=== PATIENT | male | born 1975 | race Caucasian/White ===

== ENCOUNTER 2016-12-16 18:14 | Inpatient (IN) | payer OTHER ==
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
[2016-12-16] MEDS ORDERED: CLINDAMYCIN 600MG PREMIX IVPB 50 ML IVPB ONE (19:29)
[2016-12-16] MEDS ORDERED: CLINDAMYCIN PHOSPHATE 600 MG/4 ML VIAL ONE (19:31)
[2016-12-16] MEDS ORDERED: LIDOCAINE 2%/EPINEPHRINE 1:100000 (50 ML MD VIAL) INF ONE (19:48)
[2016-12-16] MEDS ORDERED: LIDO 2%/EPI 1:200000 PRESRVFRE (20 ML SDVIAL) ONE (19:53)
[2016-12-16 20:07] LABS: MCH 31.9 pg (25.7-33.7); MEAN CELL VOLUME 93.5 fl (80-96); MEAN PLT VOLUME 8.4 fl (7.5-11.1); PLATELET COUNT 264 K/MM3 (134-434); RDW 12.7 % (11.9-15.9); WHITE BLOOD COUNT 15.6 K/mm3 (4.0-10.8)
[2016-12-16 20:08] LABS: ALBUMIN 3.3 g/dl (3.5-5.0); ALK PHOS 62 U/L (32-92); ANION GAP 7 (8-16); BILIRUBIN,TOTAL 0.7 mg/dl (0.2-1.0); CALCIUM 9.1 mg/dl (8.4-10.2); CO2 29 mmol/L (22-28); CREATININE 1.3 mg/dl (0.6-1.3); GLUCOSE,RANDOM 133 mg/dl (74-106); SGOT/AST 20 U/L (10-42); SGPT/ALT 23 U/L (10-40); TOT PROT 6.4 g/dl (6.4-8.3)
[2016-12-16 21:39] LABS: PLATELET ESTIMATE ADEQUATE (NORMAL)
[2016-12-16 23:42] VITALS: BMI 29.2
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
[2016-12-17] MEDS: CLINDAMYCIN 600MG PREMIX IVPB 50 ML IVPB SCH ×2 (02:05→08:03)
[2016-12-17] MEDS: ACETAMINOPHEN 500 MG TABLET (FP) PO PRN ×3 (07:42→18:27)
--- NOTE | 2016-12-17 08:38 | PN ---
Physical Exam: SUBJECTIVE: Patient seen and examined, reports ongoing pain to the left lower extremity, reports tactile fevers. OBJECTIVE: patient is a 41 y/o male with no significant past medical history admitted from the emergency department to observation for left lower extremity cellulitis, s/p I&D of abscess 12/16/16 Vital Signs Period Temp Pulse Resp BP Sys/[place] Pulse Ox Last 24 Hr 98.0 F-99.0 F 81-93 18-20 113-123/59-68 95-95 GENERAL: The patient is awake, alert, and fully oriented, in no acute distress. HEAD: Normal with no signs of trauma. EYES: PERRL, extraocular movements intact, sclera anicteric, conjunctiva clear. No ptosis. ENT: Ears normal, nares patent, oropharynx clear without exudates, moist mucous membranes. NECK: Trachea midline, full range of motion, supple. LUNGS: Breath sounds equal, clear to auscultation bilaterally, no wheezes, no crackles, no accessory muscle use. HEART: Regular rate and rhythm, S1, S2 without murmur, rub or gallop. ABDOMEN: Soft, nontender, nondistended, normoactive bowel sounds, no guarding, no rebound, no hepatosplenomegaly, no masses. EXTREMITIES: 2+ pulses, warm, well-perfused, no edema. LEFT LOWER EXTREMITY: anterior distal extremity 3cm of induration, 2cm vertical incision packing in place, serrous drainage noted, no clear area of demarcation , distal lower extremity erythematous. NEUROLOGICAL: Cranial nerves II through XII grossly intact. Normal speech, gait not observed. PSYCH: Normal mood, normal affect. SKIN: Warm, dry, normal turgor, no rashes or lesions noted Active Medications Generic Name Dose Route Start Last Admin Trade Name Freq PRN Reason Stop Dose Admin Acetaminophen 1,000 mg 12/17/16 00:52 12/17/16 07:42 Tylenol - PO 1,000 mg Q6H PRN Administration FEVER OR PAIN Clindamycin Phosphate 50 mls @ 100 mls/hr 12/17/16 03:00 12/17/16 08:03 Cleocin 600 Mg Premix Ivpb - IVPB 100 mls/hr Q6H-IV RINKU Administration Radiology Reports LEG TIB/FIB-LEFT Infection. Rule out osteomyelitis X-ray of the left leg, 4 views Impression: Soft tissue swelling anterior to the mid tibial shaft likely the site of infection. No gross bone abnormality is seen. Correlate clinically for further evaluation. Reported By: Domenico Randall MD 12/16/16 0612 ASSESSMENT/PLAN: 41yM with no PMH presented to ED with infected wound left lower leg. Pt has been admitted for same. Cellulitis secondary to abscess - I&D completed by ED physician on 12/16, packing to be removed on 12/18 - d/c clindamycin, start unasyn and vancomycin, appreciate ID input - follow blood cultures. Wound culture not done at time of I&D DVT PPX - deferred as expected LOS < 48h FEN - tolerating po, no s/s dehydration - regular diet as tolerated Dispo: pt currently requires inpatient observation and treatment for management of his emergent condition. Visit type - Emergency Visit Emergency Visit: Yes ED Registration Date: 12/18/16 Care time: The patient presented to the Emergency Department on the above date and was hospitalized for further evaluation of their emergent condition. - New Patient This patient is new to me today: No - Critical Care Critical Care patient: No - Discharge Referral Referred to [facility] No
--- NOTE | 2016-12-17 10:19 | PN ---
Progress Note (short form) - Note Progress Note: ID Consult dictated S/P I&D L LE soft tissue abscess Cellulitis L LE Empiric vancomycin/ unasyn
[2016-12-17] MEDS ORDERED: AMPICILLIN NA/SULBACTAM NA 1.5 GM in SODIUM CHLORIDE 100 ML IVPB SCH (10:30)
[2016-12-17] MEDS: AMPICILLIN NA/SULBACTAM NA 1.5 GM VIAL IVPB SCH ×3 (10:55→21:38)
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
[2016-12-17] MEDS: VANCOMYCIN 1 GRAM (PRE-DOCKED) 250 ML IVPB SCH ×2 (11:39→22:38)
[2016-12-18] MEDS: AMPICILLIN NA/SULBACTAM NA 1.5 GM VIAL IVPB SCH ×4 (02:14→21:36)
[2016-12-18 07:51] LABS: EOSINOPHIL 3.6 % (0-4.5); MEAN PLT VOLUME 7.9 fl (7.5-11.1); PLATELET COUNT 262 K/MM3 (134-434); RDW 13.3 % (11.9-15.9); WHITE BLOOD COUNT 5.9 K/mm3 (4.0-10.8)
[2016-12-18 08:14] LABS: ANION GAP 6 (8-16); CALCIUM 8.4 mg/dl (8.4-10.2); CO2 28 mmol/L (22-28); CREATININE 1.1 mg/dl (0.6-1.3); GLUCOSE,RANDOM 93 mg/dl (74-106); MAGNESIUM 2.1 mg/dL (1.8-2.4); PHOSPHOROUS 2.9 mg/dl (2.5-4.6)
--- NOTE | 2016-12-18 10:13 | PN ---
Progress Note, Physician History of Present Illness: Awake, alert C/O L LE pain, relieved with tylenol No fever/ chills WBC improved- WNL - Current Medication List Current Medications: Active Medications Acetaminophen (Tylenol -) 1,000 mg PO Q6H PRN PRN Reason: FEVER OR PAIN Last Admin: 12/17/16 18:27 Dose: 1,000 mg Ampicillin Sodium/Sulbactam Sodium (Unasyn -) 1.5 gm IVPB Q6H-IV RINKU Last Admin: 12/18/16 09:25 Dose: 1.5 gm Vancomycin HCl (Vancomycin (Pre-Docked)) 250 mls @ 200 mls/hr IVPB BID RINKU Last Admin: 12/17/16 22:38 Dose: 200 mls/hr Oxycodone HCl (Roxicodone -) 5 mg PO Q6H PRN PRN Reason: PAIN - Objective Vital Signs: Vital Signs Temperature 98.8 F 12/18/16 05:47 Pulse Rate 80 12/18/16 05:47 Respiratory Rate 19 12/18/16 05:47 Blood Pressure 108/57 12/18/16 05:47 O2 Sat by Pulse Oximetry (%) 96 12/18/16 05:47 Constitutional: Yes: No Distress Eyes: Yes: Conjunctiva Clear Cardiovascular: Yes: Regular Rate and Rhythm, S1, S2 Respiratory: Yes: CTA Bilaterally Gastrointestinal: Yes: Normal Bowel Sounds, Soft, Other (helaed surgical scar). No: Tenderness Extremities: Yes: Other (+ incisional wound L pre-tibial area + surrounding swelling / erythema/ warmth) Labs: CBC, BMP 12/18/16 07:30 12/18/16 07:30 Assessment/Plan S/P I&D Soft tissue abscess L LE Cellulitis L LE Possible early osteomyelitis, tibia Check ESR CRP Vanco level Continue empiric vancomycin/ unasyn
[2016-12-18] MEDS ORDERED: LIDOCAINE 1%/EPI 1:100000 (20 ML MULTI DOSE VIAL) IJ ONE (11:30)
[2016-12-18] MEDS ORDERED: LIDOCAINE 1%-EPI 1:100,000 30 ML MDV IJ ONE (12:15)
[2016-12-18] MEDS: VANCOMYCIN 1 GRAM (PRE-DOCKED) 250 ML IVPB SCH ×2 (12:17→22:08)
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
--- NOTE | 2016-12-18 12:35 | PROC ---
Incision and Drainage Indication/Location: Left lower extremity, anterior aspect below the knee Risks and Benefits Explained: Yes Consent on Chart: Yes Betadine cleansed: Yes Anesthesia: 1% Lidocaine w/ Epi Blade Size: 15 Drainage: Copious pus and cystic appearing content Iodinated Packin in - Remarks Remarks: Extension to the bone Cavity- approximately 5cm x 4cm x 2cm Excisional debridement of necrotic debris performed as well
--- NOTE | 2016-12-18 13:33 | PN ---
Physical Exam: SUBJECTIVE: Patient seen and examined, reports pain to the left lower extremity has improved, denies any tactile fever. OBJECTIVE: patient is a 41 y/o male with no significant past medical history admitted from the emergency department to observation for left lower extremity cellulitis, s/p I&D of abscess 12/16/16 Vital Signs Period Temp Pulse Resp BP Sys/[place] Pulse Ox Last 24 Hr 98.2 F-98.8 F 75-80 18-19 107-134/57-75 95-97 GENERAL: The patient is awake, alert, and fully oriented, in no acute distress. HEAD: Normal with no signs of trauma. EYES: PERRL, extraocular movements intact, sclera anicteric, conjunctiva clear. No ptosis. ENT: Ears normal, nares patent, oropharynx clear without exudates, moist mucous membranes. NECK: Trachea midline, full range of motion, supple. LUNGS: Breath sounds equal, clear to auscultation bilaterally, no wheezes, no crackles, no accessory muscle use. HEART: Regular rate and rhythm, S1, S2 without murmur, rub or gallop. ABDOMEN: Soft, nontender, nondistended, normoactive bowel sounds, no guarding, no rebound, no hepatosplenomegaly, no masses. EXTREMITIES: 2+ pulses, warm, well-perfused, no edema. LEFT LOWER EXTREMITY: anterior distal extremity 3cm of induration, 2cm vertical incision packing removed purulent drainage noted with tracking, noted, no clear area of demarcation, distal lower extremity erythematous. NEUROLOGICAL: Cranial nerves II through XII grossly intact. Normal speech, gait not observed. PSYCH: Normal mood, normal affect. SKIN: Warm, dry, normal turgor, no rashes or lesions noted Laboratory Results - last 24 hr 12/18/16 12/18/16 12/18/16 07:30 07:30 07:30 WBC 5.9 D RBC 4.43 Hgb 13.8 Hct 41.7 MCV 94.0 MCH 31.0 MCHC 33.0 RDW 13.3 Plt Count 262 MPV 7.9 Neutrophils % 70.0 Lymphocytes % 14.4 D Monocytes % 11.0 H D Eosinophils % 3.6 Basophils % 1.0 Sodium 137 Potassium 4.2 Chloride 103 Carbon Dioxide 28 Anion Gap 6 L BUN 6 L D Creatinine 1.1 Random Glucose 93 D Calcium 8.4 Phosphorus 2.9 Magnesium 2.1 Vancomycin Pre-Dose 5.696 Active Medications Generic Name Dose Route Start Last Admin Trade Name Freq PRN Reason Stop Dose Admin Acetaminophen 1,000 mg 12/17/16 00:52 12/17/16 18:27 Tylenol - PO 1,000 mg Q6H PRN Administration FEVER OR PAIN Ampicillin Sodium/Sulbactam Sodium 1.5 gm 12/17/16 10:45 12/18/16 09:25 Unasyn - IVPB 1.5 gm Q6H-IV RINKU Administration Hydromorphone HCl 2 mg 12/18/16 12:24 Dilaudid Injection - IVPB Q6H PRN PAIN Vancomycin HCl 250 mls @ 200 mls/hr 12/17/16 10:30 12/18/16 12:17 Vancomycin (Pre-Docked) IVPB 200 mls/hr BID RINKU Administration Oxycodone HCl 5 mg 12/17/16 12:15 Roxicodone - PO Q6H PRN PAIN Microbiology 12/16/16 20:00 Blood - Peripheral Venous Blood Culture - Preliminary NO GROWTH OBTAINED AFTER 24 HOURS, INCUBATION TO CONTINUE FOR 4 DAYS. 12/16/16 19:45 Blood - Peripheral Venous Blood Culture - Preliminary NO GROWTH OBTAINED AFTER 24 HOURS, INCUBATION TO CONTINUE FOR 4 DAYS. Radiology Reports LEG TIB/FIB-LEFT Infection. Rule out osteomyelitis X-ray of the left leg, 4 views Impression: Soft tissue swelling anterior to the mid tibial shaft likely the site of infection. No gross bone abnormality is seen. Correlate clinically for further evaluation. Reported By: Domenico Randall MD 12/16/[address] scan of the left lower extremity: impression: skin defect with air bubbles tracking into the soft tissues at the anterior aspect of the mid tibia/fibula suspicious for a fistula with abscess. minimal periosteal changes of the underlying anterior tibial raises concern for osteomyelitis. reports by: Dr Bernardo 12/17/16 ASSESSMENT/PLAN: Cellulitis secondary to abscess - ct scan reviewed high clinical concern for necrotizing fascitis, case discussed with Dr Henderson, surgery, ID performed at bedside by Dr Henderson, idoform packing placed - continue daily Idoform packing changes - continue unasyn and vancomycin, vanc trough wnl - blood cultures NTD DVT PPX - lovenox - zantac - oob FEN - tolerating po, no s/s dehydration - regular diet as tolerated Dispo: pt requires inpatient admission for management of his emergent condition. Visit type - Emergency Visit Emergency Visit: Yes ED Registration Date: 12/18/16 Care time: The patient presented to the Emergency Department on the above date and was hospitalized for further evaluation of their emergent condition. - New Patient This patient is new to me today: No - Critical Care Critical Care patient: No - Discharge Referral Referred to [facility] Med P.C.: No
[2016-12-18] MEDS: oxyCODONE HCL 5 MG TABLET PO PRN (14:06)
[2016-12-18] MEDS: HYDROmorphone HCL CARPU-JECT 2 MG/1 ML DISP.SYRIN IVPB PRN (15:40)
[2016-12-19] MEDS: AMPICILLIN NA/SULBACTAM NA 1.5 GM VIAL IVPB SCH ×4 (03:45→20:30)
[2016-12-19] MEDS: oxyCODONE HCL 5 MG TABLET PO PRN (08:00)
[2016-12-19] MEDS: ACETAMINOPHEN 500 MG TABLET (FP) PO PRN (08:02)
[2016-12-19 08:59] LABS: ANION GAP 8 (8-16); CALCIUM 8.6 mg/dl (8.4-10.2); CO2 26 mmol/L (22-28); CREATININE 0.9 mg/dl (0.6-1.3); GLUCOSE,RANDOM 78 mg/dl (74-106); MAGNESIUM 2.3 mg/dL (1.8-2.4); PHOSPHOROUS 4.1 mg/dl (2.5-4.6)
[2016-12-19 09:04] LABS: BASOPHIL 0.7 % (0-2.0); MCH 30.9 pg (25.7-33.7); MCHC 32.6 g/dl (32.0-35.9); MEAN CELL VOLUME 94.7 fl (80-96); MEAN PLT VOLUME 8.4 fl (7.5-11.1); NEUTROPHILS 64.1 % (42.8-82.8); PLATELET COUNT 255 K/MM3 (134-434); RDW 13.2 % (11.9-15.9); WHITE BLOOD COUNT 5.7 K/mm3 (4.0-10.8)
--- NOTE | 2016-12-19 09:19 | PN ---
Progress Note, Physician History of Present Illness: S/P I&D L LE soft tissue abscess Findings discussed with Dr Henderson Infection extends down to bone No c/o pain at present No fever/ chills Tolerating antibiotics - Current Medication List Current Medications: Active Medications Acetaminophen (Tylenol -) 1,000 mg PO Q6H PRN PRN Reason: FEVER OR PAIN Last Admin: 12/19/16 08:02 Dose: 1,000 mg Ampicillin Sodium/Sulbactam Sodium (Unasyn -) 1.5 gm IVPB Q6H-IV RINKU Last Admin: 12/19/16 03:45 Dose: 1.5 gm Enoxaparin Sodium (Lovenox -) 40 mg SQ DAILY RINKU Hydromorphone HCl (Dilaudid Injection -) 2 mg IVPB Q6H PRN PRN Reason: PAIN Last Admin: 12/18/16 15:40 Dose: 2 mg Vancomycin HCl (Vancomycin (Pre-Docked)) 250 mls @ 200 mls/hr IVPB BID RINKU Last Admin: 12/18/16 22:08 Dose: 200 mls/hr Oxycodone HCl (Roxicodone -) 5 mg PO Q6H PRN PRN Reason: PAIN Last Admin: 12/19/16 08:00 Dose: 5 mg - Objective Vital Signs: Vital Signs Temperature 97.7 F 12/19/16 05:45 Pulse Rate 65 12/19/16 05:45 Respiratory Rate 18 12/19/16 08:55 Blood Pressure 126/74 12/19/16 05:45 O2 Sat by Pulse Oximetry (%) 0 L 12/19/16 08:55 Constitutional: Yes: No Distress Eyes: Yes: Conjunctiva Clear Cardiovascular: Yes: Regular Rate and Rhythm, S1, S2 Respiratory: Yes: CTA Bilaterally Gastrointestinal: Yes: Normal Bowel Sounds, Soft. No: Tenderness Extremities: Yes: Other (incisional wound L pre-tibial area packed + surrounding erythema/ warmth /induration) Labs: CBC, BMP 12/19/16 07:00 Assessment/Plan S/P I&D Soft tissue abscess L LE Cellulitis L LE Probable early osteomyelitis, tibia Await wound c/s Continue empiric vancomycin/ unasyn Will need PICC, outpatient antibiotics
[2016-12-19] MEDS: ENOXAPARIN NA (PORCINE) 40 MG/0.4 ML DISP.SYRIN SQ SCH (09:22)
[2016-12-19] MEDS: VANCOMYCIN 1 GRAM (PRE-DOCKED) 250 ML IVPB SCH ×2 (09:23→21:17)
[2016-12-19] MEDS: HYDROmorphone HCL CARPU-JECT 2 MG/1 ML DISP.SYRIN IVPB PRN (09:48)
[2016-12-19] MEDS ORDERED: PICC LINE 8 ML FLUSH PROTOCOL IVPUSH PRN (12:03)
--- NOTE | 2016-12-19 12:04 | PN ---
Physical Exam: SUBJECTIVE: Patient seen and examined, reports feeling well denies any tactile fever, reports intermittent pain to the left lower extremity, denies any paresthesia to the left lower extremity. OBJECTIVE: patient is a 41 y/o male with no significant past medical history admitted from the emergency department to observation for left lower extremity cellulitis, s/p I&D of abscess 12/16/16 and I&D by Dr Henderson 12/18/16 Vital Signs Period Temp Pulse Resp BP Sys/[place] Pulse Ox Last 24 Hr 97.7 F-99.1 F 64-78 18-20 125-132/70-74 0-97 GENERAL: The patient is awake, alert, and fully oriented, in no acute distress. HEAD: Normal with no signs of trauma. EYES: PERRL, extraocular movements intact, sclera anicteric, conjunctiva clear. No ptosis. ENT: Ears normal, nares patent, oropharynx clear without exudates, moist mucous membranes. NECK: Trachea midline, full range of motion, supple. LUNGS: Breath sounds equal, clear to auscultation bilaterally, no wheezes, no crackles, no accessory muscle use. HEART: Regular rate and rhythm, S1, S2 without murmur, rub or gallop. ABDOMEN: Soft, nontender, nondistended, normoactive bowel sounds, no guarding, no rebound, no hepatosplenomegaly, no masses. EXTREMITIES: 2+ pulses, warm, well-perfused, no edema. LEFT LOWER EXTREMITY: distal extremity 4cm of induration, horizontal 3 x 1cm incision and 5cm of surrounding erythema NEUROLOGICAL: Cranial nerves II through XII grossly intact. Normal speech, gait not observed. PSYCH: Normal mood, normal affect. SKIN: Warm, dry, normal turgor, no rashes or lesions noted Laboratory Results - last 24 hr 12/19/16 12/19/16 07:00 07:00 WBC 5.7 RBC 4.53 Hgb 14.0 Hct 42.9 MCV 94.7 MCH 30.9 MCHC 32.6 RDW 13.2 Plt Count 255 MPV 8.4 Neutrophils % 64.1 Lymphocytes % 18.6 D Monocytes % 13.6 H Eosinophils % 3.0 Basophils % 0.7 Sodium 138 Potassium 3.9 Chloride 104 Carbon Dioxide 26 Anion Gap 8 BUN 8 D Creatinine 0.9 Random Glucose 78 Calcium 8.6 Phosphorus 4.1 D Magnesium 2.3 Active Medications Generic Name Dose Route Start Last Admin Trade Name Freq PRN Reason Stop Dose Admin Acetaminophen 1,000 mg 12/17/16 00:52 12/19/16 08:02 Tylenol - PO 1,000 mg Q6H PRN Administration FEVER OR PAIN Ampicillin Sodium/Sulbactam Sodium 1.5 gm 12/17/16 10:45 12/19/16 09:23 Unasyn - IVPB 1.5 gm Q6H-IV RINKU Administration Enoxaparin Sodium 40 mg 12/19/16 10:00 12/19/16 09:22 Lovenox - SQ 40 mg DAILY RINKU Administration Hydromorphone HCl 2 mg 12/18/16 12:24 12/19/16 09:48 Dilaudid Injection - IVPB 2 mg Q6H PRN Administration PAIN Hydromorphone HCl 2 mg 12/19/16 12:30 Dilaudid Injection - IVPB 12/19/16 12:31 ONCE ONE Vancomycin HCl 250 mls @ 200 mls/hr 12/17/16 10:30 12/19/16 09:23 Vancomycin (Pre-Docked) IVPB 200 mls/hr BID RINKU Administration Oxycodone HCl 5 mg 12/17/16 12:15 12/19/16 08:00 Roxicodone - PO 5 mg Q6H PRN Administration PAIN Microbiology 12/16/16 20:00 Blood - Peripheral Venous Blood Culture - Preliminary NO GROWTH OBTAINED AFTER 48 HOURS, INCUBATION TO CONTINUE FOR 3 DAYS. 12/16/16 19:45 Blood - Peripheral Venous Blood Culture - Preliminary NO GROWTH OBTAINED AFTER 48 HOURS, INCUBATION TO CONTINUE FOR 3 DAYS. Radiology Reports LEG TIB/FIB-LEFT Infection. Rule out osteomyelitis X-ray of the left leg, 4 views Impression: Soft tissue swelling anterior to the mid tibial shaft likely the site of infection. No gross bone abnormality is seen. Correlate clinically for further evaluation. Reported By: Domenico Randall MD 12/16/[address] scan of the left lower extremity: impression: skin defect with air bubbles tracking into the soft tissues at the anterior aspect of the mid tibia/fibula suspicious for a fistula with abscess. minimal periosteal changes of the underlying anterior tibial raises concern for osteomyelitis. reports by: Dr Bernardo 12/17/16 ASSESSMENT/PLAN: Cellulitis secondary to abscess - idoform packing changed by me, scant purulent drainage noted, wound irrigated with 500ml of NS, 1 inch idoform packing placed - continue daily Idoform packing changes - continue unasyn and vancomycin, vanc trough wnl - blood cultures NTD pending wound culture - pt will require picc line for senior care abx, picc to be placed 12/22/16 - ID and surgery consulted and following DVT PPX - lovenox - zantac - oob FEN - tolerating po, no s/s dehydration - regular diet as tolerated Dispo: pt requires inpatient admission for management of his emergent condition. Visit type - Emergency Visit Emergency Visit: Yes ED Registration Date: 12/18/16 Care time: The patient presented to the Emergency Department on the above date and was hospitalized for further evaluation of their emergent condition. - New Patient This patient is new to me today: No - Critical Care Critical Care patient: No - Discharge Referral Referred to [facility] Med P.C.: No
[2016-12-19] MEDS ORDERED: HYDROmorphone HCL CARPU-JECT 2 MG/1 ML DISP.SYRIN IVPB ONE (12:30)
--- NOTE | 2016-12-19 19:48 | PN ---
Progress Note (short form) - Note Progress Note: No events reported Packing changed by primary team Vital Signs Period Temp Pulse Resp BP Sys/[place] Pulse Ox Last 24 Hr 97.7 F-98.0 F 59-65 18-20 120-126/70-74 0-97 CBC, BMP 12/19/16 07:00 12/19/16 07:00 Continue antibiotics per ID Daily dressing changes Leg elevation
[2016-12-20] MEDS: AMPICILLIN NA/SULBACTAM NA 1.5 GM VIAL IVPB SCH ×4 (04:05→20:23)
[2016-12-20 07:40] LABS: BASOPHIL 1.7 % (0-2.0); EOSINOPHIL 3.2 % (0-4.5); MCH 31.2 pg (25.7-33.7); MCHC 33.2 g/dl (32.0-35.9); MEAN CELL VOLUME 93.9 fl (80-96); MEAN PLT VOLUME 7.7 fl (7.5-11.1); NEUTROPHILS 67.2 % (42.8-82.8); PLATELET COUNT 277 K/MM3 (134-434); RDW 12.9 % (11.9-15.9); WHITE BLOOD COUNT 6.2 K/mm3 (4.0-10.8)
[2016-12-20 08:07] LABS: ANION GAP 6 (8-16); CALCIUM 8.4 mg/dl (8.4-10.2); CO2 28 mmol/L (22-28); GLUCOSE,RANDOM 95 mg/dl (74-106); MAGNESIUM 2.2 mg/dL (1.8-2.4)
--- NOTE | 2016-12-20 09:13 | PN ---
Progress Note, Physician History of Present Illness: Reports less leg pain No fever/ chills Tolerating antibiotics - Current Medication List Current Medications: Active Medications Acetaminophen (Tylenol -) 1,000 mg PO Q6H PRN PRN Reason: FEVER OR PAIN Last Admin: 12/19/16 08:02 Dose: 1,000 mg Ampicillin Sodium/Sulbactam Sodium (Unasyn -) 1.5 gm IVPB Q6H-IV RINKU Last Admin: 12/20/16 04:05 Dose: 1.5 gm Enoxaparin Sodium (Lovenox -) 40 mg SQ DAILY [facility] Last Admin: 12/19/16 09:22 Dose: 40 mg Hydromorphone HCl (Dilaudid Injection -) 2 mg IVPB Q6H PRN PRN Reason: PAIN Last Admin: 12/19/16 09:48 Dose: 2 mg IV Flush (Picc Line Flush) 8 ml IVPUSH PRN PRN PRN Reason: Protocol Vancomycin HCl 1,250 mg/ (Dextrose) 250 mls @ 166.667 mls/hr IVPB BID RINKU Oxycodone HCl (Roxicodone -) 5 mg PO Q6H PRN PRN Reason: PAIN Last Admin: 12/19/16 08:00 Dose: 5 mg - Objective Vital Signs: Vital Signs Temperature 98.0 F 12/20/16 06:00 Pulse Rate 67 12/20/16 06:00 Respiratory Rate 18 12/20/16 09:00 Blood Pressure 127/74 12/20/16 06:00 O2 Sat by Pulse Oximetry (%) 97 12/20/16 09:00 Constitutional: Yes: No Distress Eyes: Yes: Conjunctiva Clear Cardiovascular: Yes: Regular Rate and Rhythm, S1, S2 Respiratory: Yes: CTA Bilaterally Gastrointestinal: Yes: Normal Bowel Sounds, Soft. No: Tenderness Extremities: Yes: Other (Incisional wound packed decreased erythema/ warmth/ induration L LE) Labs: CBC, BMP 12/20/16 07:20 12/20/16 07:20 Assessment/Plan S/P I&D Soft tissue abscess L LE Cellulitis L LE Probable early osteomyelitis, tibia Await wound c/s Continue empiric vancomycin/ unasyn Will need PICC, outpatient antibiotics
[2016-12-20] MEDS: ENOXAPARIN NA (PORCINE) 40 MG/0.4 ML DISP.SYRIN SQ SCH (09:45)
[2016-12-20] MEDS: VANCOMYCIN 1,250 MG in DEXTROSE 5%-WATER - 250 ML IVPB SCH ×2 (09:45→21:32)
--- NOTE | 2016-12-20 09:57 | PN ---
Physical Exam: SUBJECTIVE: Patient seen and examined at bedside. OBJECTIVE: Vital Signs Period Temp Pulse Resp BP Sys/[place] Pulse Ox Last 24 Hr 97.7 F-98.0 F 59-94 16-18 115-127/59-74 96-97 GENERAL: The patient is awake, alert, and fully oriented, in no acute distress. HEAD: Normal with no signs of trauma. LUNGS: Breath sounds equal, clear to auscultation bilaterally, no wheezes, no crackles, no accessory muscle use. HEART: Regular rate and rhythm, S1, S2 without murmur, rub or gallop. ABDOMEN: Soft, nontender, nondistended, normoactive bowel sounds, no guarding, no rebound, no hepatosplenomegaly, no masses. EXTREMITIES: 2+ pulses, warm, well-perfused, no edema. I&D site with iodoform packing. Minimal redness to site. No drainage. NEUROLOGICAL: Cranial nerves II through XII grossly intact. Normal speech, gait not observed. PSYCH: Normal mood, normal affect. SKIN: Warm, dry, normal turgor, no rashes or lesions noted Laboratory Results - last 24 hr 12/19/16 12/20/16 12/20/16 09:00 07:20 07:20 WBC 6.2 RBC 4.62 Hgb 14.4 Hct 43.3 MCV 93.9 MCH 31.2 MCHC 33.2 RDW 12.9 Plt Count 277 MPV 7.7 Neutrophils % 67.2 Lymphocytes % 20.1 Monocytes % 7.8 Eosinophils % 3.2 Basophils % 1.7 Sodium 140 Potassium 4.2 Chloride 106 Carbon Dioxide 28 Anion Gap 6 L BUN 8 Creatinine 1.0 Random Glucose 95 D Calcium 8.4 Phosphorus 4.0 Magnesium 2.2 Vancomycin Pre-Dose 4.798 L D Active Medications Generic Name Dose Route Start Last Admin Trade Name Freq PRN Reason Stop Dose Admin Acetaminophen 1,000 mg 12/17/16 00:52 12/19/16 08:02 Tylenol - PO 1,000 mg Q6H PRN Administration FEVER OR PAIN Ampicillin Sodium/Sulbactam Sodium 1.5 gm 12/17/16 10:45 12/20/16 09:44 Unasyn - IVPB 1.5 gm Q6H-IV RINKU Administration Enoxaparin Sodium 40 mg 12/19/16 10:00 12/20/16 09:45 Lovenox - SQ 40 mg DAILY RINKU Administration Hydromorphone HCl 2 mg 12/18/16 12:24 12/19/16 09:48 Dilaudid Injection - IVPB 2 mg Q6H PRN Administration PAIN IV Flush 8 ml 12/19/16 12:03 Picc Line Flush IVPUSH PRN PRN Protocol Vancomycin HCl 1,250 mg/ 250 mls @ 166.667 mls/hr 12/20/16 10:00 12/20/16 09:45 Dextrose IVPB 166.667 mls/hr BID RINKU Administration Oxycodone HCl 5 mg 12/17/16 12:15 12/19/16 08:00 Roxicodone - PO 5 mg Q6H PRN Administration PAIN ASSESSMENT/PLAN: A: 41yo man with LLE cellulitis with abscess s/p I&D on 12/18 1. Cellulitis secondary to abscess - iodoform packing changed by me, no drainage noted, wound irrigated with 500ml of NS, 1 inch iodoform packing placed - continue daily Iodoform packing changes - continue unasyn and vancomycin, vanc trough wnl - blood cultures NTD - wound cx- MSSA - picc for residential abx, to be placed 12/22/16 - ID and surgery following 2. FEN - tolerating po, no s/s dehydration - regular diet as tolerated 3. DVT PPX - lovenox - zantac - oob Dispo: pt requires inpatient care for his acute medical condition. Visit type - Emergency Visit Emergency Visit: Yes ED Registration Date: 12/18/16 Care time: The patient presented to the Emergency Department on the above date and was hospitalized for further evaluation of their emergent condition. - New Patient This patient is new to me today: Yes Date on this admission: 12/21/16 - Critical Care Critical Care patient: No
[2016-12-20] MEDS: HYDROmorphone HCL CARPU-JECT 2 MG/1 ML DISP.SYRIN IVPB PRN (12:52)
[2016-12-20] MEDS: ACETAMINOPHEN 500 MG TABLET (FP) PO PRN (19:52)
[2016-12-20] MEDS: oxyCODONE HCL 5 MG TABLET PO PRN (19:52)
[2016-12-21] MEDS: AMPICILLIN NA/SULBACTAM NA 1.5 GM VIAL IVPB SCH ×4 (03:12→21:43)
[2016-12-21 07:54] LABS: BASOPHIL 0.3 % (0-2.0); EOSINOPHIL 3.6 % (0-4.5); MEAN PLT VOLUME 8.1 fl (7.5-11.1); WHITE BLOOD COUNT 5.6 K/mm3 (4.0-10.8)
[2016-12-21 08:01] LABS: MCH 31.3 pg (25.7-33.7); MCHC 33.6 g/dl (32.0-35.9); MEAN CELL VOLUME 93.1 fl (80-96); NEUTROPHILS 67.1 % (42.8-82.8); PLATELET COUNT 283 K/MM3 (134-434); RDW 12.6 % (11.9-15.9)
[2016-12-21 08:12] LABS: ANION GAP 7 (8-16); CALCIUM 8.3 mg/dl (8.4-10.2); CO2 25 mmol/L (22-28); CREATININE 0.9 mg/dl (0.6-1.3); GLUCOSE,RANDOM 117 mg/dl (74-106)
[2016-12-21] MEDS: ENOXAPARIN NA (PORCINE) 40 MG/0.4 ML DISP.SYRIN SQ SCH (09:39)
[2016-12-21] MEDS: VANCOMYCIN 1,250 MG in DEXTROSE 5%-WATER - 250 ML IVPB SCH ×2 (09:48→23:19)
--- NOTE | 2016-12-21 09:58 | PN ---
Physical Exam: SUBJECTIVE: Patient seen and examined at bedside. OBJECTIVE: Vital Signs Period Temp Pulse Resp BP Sys/[place] Pulse Ox Last 24 Hr 97.9 F-98.7 F 65-85 18-20 113-144/63-80 95-98 GENERAL: The patient is awake, alert, and fully oriented, in no acute distress. HEAD: Normal with no signs of trauma. LUNGS: Breath sounds equal, clear to auscultation bilaterally, no wheezes, no crackles, no accessory muscle use. HEART: Regular rate and rhythm, S1, S2 without murmur, rub or gallop. ABDOMEN: Soft, nontender, nondistended, normoactive bowel sounds, no guarding, no rebound, no hepatosplenomegaly, no masses. EXTREMITIES: 2+ pulses, warm, well-perfused, no edema. I&D site with iodoform packing. Minimal redness to site. No drainage. NEUROLOGICAL: Cranial nerves II through XII grossly intact. Normal speech, gait not observed. PSYCH: Normal mood, normal affect. SKIN: Warm, dry, normal turgor, no rashes or lesions noted Laboratory Results - last 24 hr 12/21/16 12/21/16 06:00 06:00 WBC 5.6 RBC 4.71 Hgb 14.7 Hct 43.8 MCV 93.1 MCH 31.3 MCHC 33.6 RDW 12.6 Plt Count 283 MPV 8.1 Neutrophils % 67.1 Lymphocytes % 20.9 Monocytes % 8.1 Eosinophils % 3.6 Basophils % 0.3 Sodium 138 Potassium 3.7 Chloride 106 Carbon Dioxide 25 Anion Gap 7 L BUN 8 Creatinine 0.9 Random Glucose 117 H D Calcium 8.3 L Active Medications Generic Name Dose Route Start Last Admin Trade Name Freq PRN Reason Stop Dose Admin Acetaminophen 1,000 mg 12/17/16 00:52 12/20/16 19:52 Tylenol - PO 1,000 mg Q6H PRN Administration FEVER OR PAIN Ampicillin Sodium/Sulbactam Sodium 1.5 gm 12/17/16 10:45 12/21/16 09:39 Unasyn - IVPB 1.5 gm Q6H-IV RINKU Administration Enoxaparin Sodium 40 mg 12/19/16 10:00 12/21/16 09:39 Lovenox - SQ 40 mg DAILY RINKU Administration Hydromorphone HCl 2 mg 12/18/16 12:24 12/20/16 12:52 Dilaudid Injection - IVPB 2 mg Q6H PRN Administration PAIN IV Flush 8 ml 12/19/16 12:03 Picc Line Flush IVPUSH PRN PRN Protocol Vancomycin HCl 1,250 mg/ 250 mls @ 166.667 mls/hr 12/20/16 10:00 12/21/16 09:48 Dextrose IVPB 166.667 mls/hr BID RINKU Administration Oxycodone HCl 5 mg 12/17/16 12:15 12/20/16 19:52 Roxicodone - PO 5 mg Q6H PRN Administration PAIN Microbiology 12/16/16 20:00 Blood - Peripheral Venous Blood Culture - Preliminary NO GROWTH OBTAINED AFTER 96 HOURS, INCUBATION TO CONTINUE FOR 1 DAYS. 12/16/16 19:45 Blood - Peripheral Venous Blood Culture - Preliminary NO GROWTH OBTAINED AFTER 96 HOURS, INCUBATION TO CONTINUE FOR 1 DAYS. 12/18/16 13:00 Foot - Left Dorsum Gram Stain - Final 12/18/16 13:00 Foot - Left Dorsum Wound Culture - Preliminary Presumptive Mssa (Pbp2a Neg) ASSESSMENT/PLAN: A: 41yo man with LLE cellulitis with abscess s/p I&D on 12/18. For PICC placement 12/22 for long term acute care registered nurse IV abx. 1. Cellulitis secondary to abscess - iodoform packing changed by me, no drainage noted, wound irrigated with 500ml of NS, 1 inch iodoform packing placed - continue daily Iodoform packing changes - continue unasyn and vancomycin- ?vanc given MSSA - blood cultures NGTD - wound cx- MSSA - picc for prison abx, to be placed 12/22/16 - ID and surgery following 2. FEN - regular diet 3. PPX - lovenox - zantac - oob Dispo: pt requires inpatient care for his acute medical condition. Visit type - Emergency Visit Emergency Visit: Yes ED Registration Date: 12/18/16 Care time: The patient presented to the Emergency Department on the above date and was hospitalized for further evaluation of their emergent condition. - New Patient This patient is new to me today: No - Critical Care Critical Care patient: No
[2016-12-21] MEDS: oxyCODONE HCL 5 MG TABLET PO PRN (15:17)
[2016-12-21] MEDS: HYDROmorphone HCL CARPU-JECT 2 MG/1 ML DISP.SYRIN IVPB PRN ×2 (15:17→21:43)
[2016-12-21] MEDS ORDERED: REFRIGERATED ANITBIOTICS ONE (22:22)
[2016-12-22] MEDS: AMPICILLIN NA/SULBACTAM NA 1.5 GM VIAL IVPB SCH ×2 (03:48→08:08)
[2016-12-22] MEDS: HYDROmorphone HCL CARPU-JECT 2 MG/1 ML DISP.SYRIN IVPB PRN (04:18)
[2016-12-22 06:23] VITALS: BP 121/56; PULSE 65; TEMP 97.8
[2016-12-22 09:06] LABS: ANION GAP 5 (8-16); CALCIUM 8.9 mg/dl (8.4-10.2); CO2 29 mmol/L (22-28); CREATININE 1.1 mg/dl (0.6-1.3); GLUCOSE,RANDOM 87 mg/dl (74-106)
[2016-12-22 09:13] LABS: BASOPHIL 1.1 % (0-2.0); EOSINOPHIL 2.8 % (0-4.5); MCH 31.3 pg (25.7-33.7); MCHC 33.3 g/dl (32.0-35.9); MEAN PLT VOLUME 8.1 fl (7.5-11.1); NEUTROPHILS 63.3 % (42.8-82.8); PLATELET COUNT 308 K/MM3 (134-434); RDW 12.6 % (11.9-15.9); WHITE BLOOD COUNT 7.6 K/mm3 (4.0-10.8)
[2016-12-22] MEDS: VANCOMYCIN 1,250 MG in DEXTROSE 5%-WATER - 250 ML IVPB SCH (11:14)
--- NOTE | 2016-12-22 11:17 | PN ---
Progress Note, Physician History of Present Illness: Patient seen in radiology dept Doing well No c/o leg pain. No fever/ chills Wound c/s MSSA - Current Medication List Current Medications: Active Medications Acetaminophen (Tylenol -) 1,000 mg PO Q6H PRN PRN Reason: FEVER OR PAIN Last Admin: 12/20/16 19:52 Dose: 1,000 mg Enoxaparin Sodium (Lovenox -) 40 mg SQ DAILY RINKU Last Admin: 12/21/16 09:39 Dose: 40 mg Hydromorphone HCl (Dilaudid Injection -) 2 mg IVPB Q6H PRN PRN Reason: PAIN Last Admin: 12/22/16 04:18 Dose: 2 mg IV Flush (Picc Line Flush) 8 ml IVPUSH PRN PRN PRN Reason: Protocol Ceftriaxone Sodium 2 gm/ (Dextrose) 100 mls @ 200 mls/hr IVPB DAILY RINKU Oxycodone HCl (Roxicodone -) 5 mg PO Q6H PRN PRN Reason: PAIN Last Admin: 12/21/16 15:17 Dose: 5 mg - Objective Vital Signs: Vital Signs Temperature 97.8 F 12/22/16 06:00 Pulse Rate 65 12/22/16 06:00 Respiratory Rate 18 12/22/16 07:55 Blood Pressure 121/56 12/22/16 06:00 O2 Sat by Pulse Oximetry (%) 97 12/22/16 06:20 Constitutional: Yes: No Distress Eyes: Yes: Conjunctiva Clear Cardiovascular: Yes: Regular Rate and Rhythm, S1, S2 Respiratory: Yes: CTA Bilaterally Gastrointestinal: Yes: Normal Bowel Sounds, Soft. No: Tenderness Extremities: Yes: Other (incisional wound packed erythema/ induration nearly all resolved) Labs: CBC, BMP 12/22/16 07:30 12/22/16 07:30 Assessment/Plan S/P I&D Soft tissue abscess L LE MSSA Cellulitis L LE Probable early osteomyelitis, tibia Completing first week of IV antibiotic therapy Discontinue vancomycin/ unasyn Ceftriaxone 2gm IVPB for additional 3weeks followed by oral therapy x 2weeks Will follow up in office 2 weeks Local wound care
--- NOTE | 2016-12-22 11:29 | DS ---
Physical Exam: SUBJECTIVE: Patient seen and examined, reports feeling well denies any tactile fever OBJECTIVE: patient is a 41 year old male without significant past medical history who presented to the ED from an urgent care with a wound to his left lower leg. He reports that approximately 6 months ago he banged his anand on a stair and developed a lump. He states it was flesh colored and firm but not hard. The lump remained the same until Thursday when he noticed it had suddenly gone down. Then on Thursday he noticed it growing again and red and inflamed looking. Thursday it was much worse with surrounding erythema. Pt presented to urgent care at this time who sent him here for evaluation and treatment. He denies fever but reports lethargy and malaise for the past few days. ER course was notable for: (1) I&D with packing placed (2) given clindamycin IV (3) WBC 15.6 Vital Signs Period Temp Pulse Resp BP Sys/[place] Pulse Ox Last 24 Hr 97.8 F-98.1 F 62-69 17-19 113-149/56-74 96-100 PHYSICAL EXAM GENERAL: The patient is awake, alert, and fully oriented, in no acute distress. HEAD: Normal with no signs of trauma. EYES: PERRL, extraocular movements intact, sclera anicteric, conjunctiva clear. ENT: Ears normal, nares patent, oropharynx clear without exudates, moist mucous membranes. NECK: Trachea midline, full range of motion, supple. LUNGS: Breath sounds equal, clear to auscultation bilaterally, no wheezes, no crackles, no accessory muscle use. HEART: Regular rate and rhythm, S1, S2 without murmur, rub or gallop. ABDOMEN: Soft, nontender, nondistended, normoactive bowel sounds, no guarding, no rebound, no hepatosplenomegaly, no masses. EXTREMITIES: 2+ pulses, warm, well-perfused, no edema. NEUROLOGICAL: Cranial nerves II through XII grossly intact. Normal speech, gait not observed. PSYCH: Normal mood, normal affect. SKIN: Warm, dry, normal turgor, no rashes or lesions noted. LABS Laboratory Results - last 24 hr 12/21/16 12/22/16 12/22/16 21:50 07:30 07:30 WBC 7.6 D RBC 5.01 Hgb 15.7 Hct 47.1 MCV 94.0 MCH 31.3 MCHC 33.3 RDW 12.6 Plt Count 308 MPV 8.1 Neutrophils % 63.3 Lymphocytes % 25.0 Monocytes % 7.8 Eosinophils % 2.8 Basophils % 1.1 D Sodium 138 Potassium 4.7 D Chloride 104 Carbon Dioxide 29 H Anion Gap 5 L BUN 8 Creatinine 1.1 D Random Glucose 87 D Calcium 8.9 Vancomycin Pre-Dose 7.015 D HOSPITAL COURSE: Date of Admission:12/18/16 Date of Discharge: 12/22/16 Minutes to complete discharge: 45 Discharge Summary Reason For Visit: LEFT LEG CELLULITIS Current Active Problems Cellulitis (Acute) Condition: Stable - Home Medications Comprehensive Discharge Medication List: Ambulatory Orders Ibuprofen [Motrin -] 400 mg PO ONCE 12/16/16 - Discharge Referral Referred to [facility] No
[2016-12-22] MEDS ORDERED: CEFTRIAXONE 100 ML IVPB SCH (11:30)
[2016-12-22] MEDS: ENOXAPARIN NA (PORCINE) 40 MG/0.4 ML DISP.SYRIN SQ SCH (11:32)
== END 2016-12-22 13:45 | disposition home health service (06) | DRG 572 ==
LOC: FER 18:14 → FM/S 21:57 → OBSVTOIN 12-18 13:41
PROVIDERS: ADMIT Internal Medicine; ATTEND Nurse Practitioner Family
PROC: 0H9LXZX Drainage of Left Lower Leg Skin, External Approach, Diagnostic (ICD-10-PCS; principal; 2016-12-16)
PROC: 0JBP0ZZ Excision of Left Lower Leg Subcutaneous Tissue and Fascia, Open Approach (ICD-10-PCS; 2016-12-18)
PROC: 02HV33Z Insertion of Infusion Device into Superior Vena Cava, Percutaneous Approach (ICD-10-PCS; 2016-12-22)
DX: L03.116 Cellulitis of left lower limb (principal); A49.02 Methicillin resistant Staphylococcus aureus infection, unspecified site
CPT/HCPCS: 36415; 36569; 73590-TC-LT; 73700-TC-RT; 77001-TC; 80048; 80053; 83735; 84100; 85025; 87040; 87070; 87186; 87205; 99284-25; C1751; G0378; G0480

== ENCOUNTER 2018-11-23 18:31 | Inpatient (IN) | payer OTHER ==
[2018-11-23 19:40] LABS: BASO % 0.7 % (0-2.0); EOS % 1.6 % (0-4.5); HEMATOCRIT 41.2 % (35.4-49); HEMOGLOBIN 13.9 GM/dl (11.7-16.9); LYMPH % 32.2 % (8-40); MCH 30.9 pg (25.7-33.7); MCHC 33.7 g/dl (32.0-35.9); MEAN CELL VOLUME 91.8 fl (80-96); MEAN PLT VOLUME 8.3 fl (7.5-11.1); MONO % 10.9 % (3.8-10.2); NEUT % 54.6 % (42.8-82.8); PLATELET COUNT 221 K/MM3 (134-434); RBC 4.48 M/mm3 (4.00-5.60); RDW 12.2 % (11.9-15.9); WHITE BLOOD COUNT 5.2 K/mm3 (4.0-10.8)
[2018-11-23 19:48] LABS: ALBUMIN 4.1 g/dl (3.4-5.0); BILIRUBIN,TOTAL 1.4 mg/dl (0.2-1); CALCIUM 8.7 mg/dl (8.5-10); POTASSIUM 3.4 mmol/L (3.5-5.1); TOT PROT 7.1 g/dl (6.4-8.2)
[2018-11-23] MEDS ORDERED: PIPERACILLIN/TAZOB 3.375 GM 3.375 GM in DEXTROSE 5%-WATER - 50 ML IVPB ONE (19:55)
[2018-11-23] MEDS ORDERED: PIPERACILLIN/TAZOBACTAM 3.375 GM VIAL IVPB ONE (19:58)
[2018-11-23] MEDS ORDERED: DIPHTH,PERTUSS(ACELL),TET 0.5 ML DISP.SYRIN IM ONE (19:58)
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
[2018-11-23] MEDS: HEPARIN NA (PORCINE) 5,000 UNITS/ML 1ML VIAL SQ SCH (22:47)
[2018-11-23 23:10] VITALS: BMI 31.5
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
[2018-11-23] MEDS ORDERED: ACETAMINOPHEN 325 MG TABLET (FP) PO PRN (23:55)
[2018-11-24] MEDS ORDERED: PIPERACILLIN/TAZOBACTAM 3.375 GM VIAL IVPB ONE ×3 (01:22→18:16)
[2018-11-24] MEDS ORDERED: DEXTROSE 5%-WATER - 50 ML IVPB ONE ×3 (01:22→18:16)
[2018-11-24] MEDS: PIPERACILLIN/TAZOB 3.375 GM 3.375 GM in DEXTROSE 5%-WATER - 50 ML IVPB SCH ×3 (01:54→18:55)
[2018-11-24] MEDS ORDERED: PIPERACILLIN/TAZOB 2.25 GM 2.25 GM in DEXTROSE 5%-WATER - 50 ML IVPB SCH ×2 (02:00→18:00)
[2018-11-24 07:48] LABS: BASO % 0.8 % (0-2.0); EOS % 2.7 % (0-4.5); HEMATOCRIT 39.3 % (35.4-49); HEMOGLOBIN 13.4 GM/dl (11.7-16.9); LYMPH % 37.3 % (8-40); MCH 31.1 pg (25.7-33.7); MCHC 34.1 g/dl (32.0-35.9); MEAN CELL VOLUME 91.2 fl (80-96); MEAN PLT VOLUME 8.4 fl (7.5-11.1); MONO % 9.5 % (3.8-10.2); NEUT % 49.7 % (42.8-82.8); PLATELET COUNT 192 K/MM3 (134-434); RBC 4.31 M/mm3 (4.00-5.60); RDW 11.9 % (11.9-15.9); WHITE BLOOD COUNT 3.9 K/mm3 (4.0-10.8)
[2018-11-24 08:11] LABS: CALCIUM 8.5 mg/dl (8.5-10); CREATININE 1.1 mg/dl (0.55-1.3)
--- NOTE | 2018-11-24 08:28 | EKG ---
Test Reason : Blood Pressure : / mmHG Vent. Rate : 072 BPM Atrial Rate : 072 BPM P-R Int : 196 ms QRS Dur : 082 ms QT Int : 392 ms P-R-T Axes : 038 022 046 degrees QTc Int : 429 ms NORMAL SINUS RHYTHM NORMAL ECG WHEN COMPARED WITH ECG OF 21-AUG-2015 13:29, NO SIGNIFICANT CHANGE WAS FOUND Confirmed by OK COOPER MD ([id number]) on 11/24/2018 8:28:20 AM Referred By: DR HORTON Confirmed By:OK COOPER MD
--- NOTE | 2018-11-24 09:44 | PN ---
Physical Exam: SUBJECTIVE: Patient seen and examined, denies pain foot xray reviewed- MRI ordered to r/o osteo ID consult OBJECTIVE: Vital Signs Period Temp Pulse Resp BP Sys/[place] Pulse Ox Last 24 Hr 98.0 F-98.6 F 70-98 16-18 126-149/74-100 96-100 GENERAL: The patient is awake, alert, and fully oriented, in no acute distress. HEAD: Normal with no signs of trauma. EYES: PERRL, extraocular movements intact, sclera anicteric, conjunctiva clear. No ptosis. ENT: Ears normal, nares patent, oropharynx clear without exudates, moist mucous membranes. NECK: Trachea midline, full range of motion, supple. LUNGS: Breath sounds equal, clear to auscultation bilaterally, no wheezes, no crackles, no accessory muscle use. HEART: Regular rate and rhythm, S1, S2 without murmur, rub or gallop. ABDOMEN: Soft, nontender, nondistended, normoactive bowel sounds, no guarding, no rebound, no hepatosplenomegaly, no masses. EXTREMITIES: 2+ pulses, warm, well-perfused, no edema. NEUROLOGICAL: Cranial nerves II through XII grossly intact. Normal speech, gait not observed. PSYCH: Normal mood, normal affect. SKIN: Warm, dry, normal turgor, no rashes or lesions noted Laboratory Results - last 24 hr 11/23/18 11/23/18 11/23/18 19:20 19:30 19:34 WBC 5.2 RBC 4.48 Hgb 13.9 Hct 41.2 MCV 91.8 MCH 30.9 MCHC 33.7 RDW 12.2 Plt Count 221 D MPV 8.3 Absolute Neuts (auto) 2.8 Neutrophils % 54.6 Lymphocytes % 32.2 D Monocytes % 10.9 H Eosinophils % 1.6 Basophils % 0.7 ESR 16 H Sodium Potassium Chloride Carbon Dioxide Anion Gap BUN Creatinine Est GFR (CKD-EPI)AfAm Est GFR (CKD-EPI)NonAf Random Glucose Lactic Acid Calcium Total Bilirubin AST ALT Alkaline Phosphatase Total Protein Albumin Urine Color Yellow Urine Appearance Clear Urine pH 6.0 Urine Protein Negative Urine Glucose (UA) Negative Urine Ketones Trace Urine Blood Negative Urine Nitrite Negative Urine Bilirubin Negative Urine Urobilinogen 0.2 Ur Leukocyte Esterase Negative 07/09/19 07/09/19 07/10/19 19:34 19:34 07:20 WBC 3.9 L RBC 4.31 Hgb 13.4 Hct 39.3 MCV 91.2 MCH 31.1 MCHC 34.1 RDW 11.9 Plt Count 192 MPV 8.4 Absolute Neuts (auto) 1.9 Neutrophils % 49.7 Lymphocytes % 37.3 Monocytes % 9.5 Eosinophils % 2.7 Basophils % 0.8 ESR Sodium 139 Potassium 3.4 L Chloride 103 Carbon Dioxide 28 Anion Gap 8 BUN 16.0 Creatinine 1.0 Est GFR (CKD-EPI)AfAm 104.88 Est GFR (CKD-EPI)NonAf 90.49 Random Glucose 128 H Lactic Acid 1.1 Calcium 8.7 Total Bilirubin 1.4 H AST 22 ALT 32 Alkaline Phosphatase 83 Total Protein 7.1 Albumin 4.1 Urine Color Urine Appearance Urine pH Urine Protein Urine Glucose (UA) Urine Ketones Urine Blood Urine Nitrite Urine Bilirubin Urine Urobilinogen Ur Leukocyte Esterase 11/24/18 07:20 WBC RBC Hgb Hct MCV MCH MCHC RDW Plt Count MPV Absolute Neuts (auto) Neutrophils % Lymphocytes % Monocytes % Eosinophils % Basophils % ESR Sodium 138 Potassium 4.0 Chloride 106 Carbon Dioxide 27 Anion Gap 5 L BUN 14.0 Creatinine 1.1 Est GFR (CKD-EPI)AfAm 93.47 Est GFR (CKD-EPI)NonAf 80.64 Random Glucose 129 H Lactic Acid Calcium 8.5 Total Bilirubin AST ALT Alkaline Phosphatase Total Protein Albumin Urine Color Urine Appearance Urine pH Urine Protein Urine Glucose (UA) Urine Ketones Urine Blood Urine Nitrite Urine Bilirubin Urine Urobilinogen Ur Leukocyte Esterase Active Medications Generic Name Dose Route Start Last Admin Trade Name Gertrude PRN Reason Stop Dose Admin Acetaminophen 650 mg 11/23/18 23:55 Tylenol - PO Q6H PRN PAIN LEVEL 1 - 3 Docusate Sodium 100 mg 11/24/18 10:00 Colace - PO DAILY RINKU Heparin Sodium (Porcine) 5,000 unit 11/23/18 22:00 11/23/18 22:47 Heparin - SQ 5,000 unit BID RINKU Administration Piperacillin Sod/Tazobactam 50 mls @ 100 mls/hr 11/24/18 02:00 11/24/18 01:54 Sod 3.375 gm/ Dextrose IVPB 11/24/18 10:29 100 mls/hr Q8H-IV RINKU Administration Protocol Piperacillin Sod/Tazobactam 50 mls @ 100 mls/hr 11/24/18 18:00 Sod 3.375 gm/ Dextrose IVPB Q8H-IV RINKU Protocol Oxycodone/Acetaminophen 1 combo 11/23/18 23:56 Percocet 5/325 - PO Q6H PRN PAIN LEVEL 6-10 ASSESSMENT/PLAN: Jose Elias William is a 43 yr old M, no medical condition admitted for Admitting Diagnosis LLE cellulitis A/P: #LLE cellulitis -no leukocytosis, afebrile -IV , zosyn -ID consult -pain mgt -lactic wnl -blood cx pending -foot, tibia/fibula xray -possible osteo -MRI left foot ordered -pain mgt -A1c pending #Elevated BP -much improved w/low sodium diet -will not start antihypertensive meds -pt admits to eating alot of salt in diet GI/DVT Prophylaxis Full Code Dispo: requires inpatient treatment Visit type - Emergency Visit Emergency Visit: Yes ED Registration Date: 11/23/18 Care time: The patient presented to the Emergency Department on the above date and was hospitalized for further evaluation of their emergent condition. - New Patient This patient is new to me today: No - Critical Care Critical Care patient: No
[2018-11-24] MEDS: HEPARIN NA (PORCINE) 5,000 UNITS/ML 1ML VIAL SQ SCH ×2 (10:15→21:28)
[2018-11-24] MEDS: DOCUSATE SODIUM 100 MG CAPSULE (FP) PO SCH (10:16)
--- NOTE | 2018-11-24 12:13 | PN ---
Progress Note (short form) - Note Progress Note: ID CONSULT DICTATED CELLULITIS L FOOT R/O OSTEOMYELITIS AWAIT C/S MRI EMPIRIC VANCOMYCIN/ ZOSYN PODIATRY EVALUATION
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
[2018-11-24] MEDS: VANCOMYCIN 1 GRAM (PRE-DOCKED) 1,000 MG/250 ML BAG IVPB SCH (14:08)
[2018-11-24] MEDS ORDERED: PIPERACILLIN/TAZOB 3.375 GM 3.375 GM in DEXTROSE 5%-WATER - 50 ML IVPB SCH (18:00)
[2018-11-25] MEDS ORDERED: DEXTROSE 5%-WATER - 50 ML IVPB ONE ×3 (01:11→17:58)
[2018-11-25] MEDS ORDERED: PIPERACILLIN/TAZOBACTAM 3.375 GM VIAL IVPB ONE ×3 (01:11→17:58)
[2018-11-25] MEDS: PIPERACILLIN/TAZOB 3.375 GM 3.375 GM in DEXTROSE 5%-WATER - 50 ML IVPB SCH ×3 (01:33→18:38)
[2018-11-25 08:01] LABS: BASO % 0.8 % (0-2.0); EOS % 2.4 % (0-4.5); HEMATOCRIT 40.1 % (35.4-49); HEMOGLOBIN 13.6 GM/dl (11.7-16.9); LYMPH % 34.2 % (8-40); MCH 30.9 pg (25.7-33.7); MCHC 33.9 g/dl (32.0-35.9); MEAN CELL VOLUME 91.3 fl (80-96); MEAN PLT VOLUME 8.4 fl (7.5-11.1); MONO % 9.8 % (3.8-10.2); NEUT % 52.8 % (42.8-82.8); PLATELET COUNT 190 K/MM3 (134-434); RBC 4.39 M/mm3 (4.00-5.60); RDW 11.7 % (11.9-15.9); WHITE BLOOD COUNT 4.8 K/mm3 (4.0-10.8)
[2018-11-25 08:24] LABS: ALBUMIN 3.6 g/dl (3.4-5.0); BILIRUBIN,TOTAL 1.4 mg/dl (0.2-1); CALCIUM 8.6 mg/dl (8.5-10); CREATININE 1.1 mg/dl (0.55-1.3); POTASSIUM 3.7 mmol/L (3.5-5.1); TOT PROT 6.4 g/dl (6.4-8.2)
[2018-11-25] MEDS: DOCUSATE SODIUM 100 MG CAPSULE (FP) PO SCH (09:41)
[2018-11-25] MEDS: HEPARIN NA (PORCINE) 5,000 UNITS/ML 1ML VIAL SQ SCH ×2 (09:41→23:22)
--- NOTE | 2018-11-25 12:21 | PN ---
Physical Exam: SUBJECTIVE: Patient seen and examined at bedside. Pain in left toes has resolved , redness is almost completely gone. OBJECTIVE: Vital Signs Period Temp Pulse Resp BP Sys/Palomino Pulse Ox Last 24 Hr 97.6 F-98.1 F 67-69 16-19 123-126/72-80 94-95 GENERAL: The patient is awake, alert, and fully oriented, in no acute distress. LUNGS: Breath sounds equal, clear to auscultation bilaterally, no wheezes, no crackles, no accessory muscle use. HEART: Regular rate and rhythm, S1, S2 ABDOMEN: Soft, nontender, nondistended LEFT LOWER EXTREMITY Great toe: scabbed over wound ~1cm circumference on dorsal aspect; minimal erythema, well within the borders of a previously demarcated area Great toe: closed wound on plantar aspect Second toe: dessicated wound on tip, nail is missing Strong 2+ DP pulse left foot; warm, well-perfused Laboratory Results - last 24 hr 11/25/18 11/25/18 07:05 07:05 WBC 4.8 RBC 4.39 Hgb 13.6 Hct 40.1 MCV 91.3 MCH 30.9 MCHC 33.9 RDW 11.7 L Plt Count 190 MPV 8.4 Absolute Neuts (auto) 2.6 Neutrophils % 52.8 Lymphocytes % 34.2 Monocytes % 9.8 Eosinophils % 2.4 Basophils % 0.8 Sodium 138 Potassium 3.7 Chloride 103 Carbon Dioxide 28 Anion Gap 7 L BUN 12.0 Creatinine 1.1 Est GFR (CKD-EPI)AfAm 93.47 Est GFR (CKD-EPI)NonAf 80.64 Random Glucose 114 H Calcium 8.6 Total Bilirubin 1.4 H AST 18 ALT 28 Alkaline Phosphatase 72 D Total Protein 6.4 Albumin 3.6 Active Medications Generic Name Dose Route Start Last Admin Trade Name Freq PRN Reason Stop Dose Admin Acetaminophen 650 mg 11/23/18 23:55 11/24/18 14:08 Tylenol - PO 650 mg Q6H PRN Administration PAIN LEVEL 1 - 3 Docusate Sodium 100 mg 11/24/18 10:00 11/25/18 09:41 Colace - PO Not Given DAILY RINKU Heparin Sodium (Porcine) 5,000 unit 11/23/18 22:00 11/25/18 09:41 Heparin - SQ 5,000 unit BID RINKU Administration Piperacillin Sod/Tazobactam 50 mls @ 100 mls/hr 11/24/18 18:00 11/25/18 09:41 Sod 3.375 gm/ Dextrose IVPB 100 mls/hr Q8H-IV RINKU Administration Protocol Vancomycin HCl 1,000 mg in 250 mls @ 200 mls/hr 11/24/18 13:00 11/24/18 14:08 Vancomycin (Pre-Docked) IVPB 200 mls/hr Q24H RINKU Administration Protocol Oxycodone/Acetaminophen 1 combo 11/23/18 23:56 11/24/18 20:19 Percocet 5/325 - PO 1 combo Q6H PRN Administration PAIN LEVEL 6-10 ASSESSMENT/PLAN: 43 year-old male with a PMH significant for left lower extremity cellulitis with abscess (2017), and s/p surgery on plantar aspect of left great toe x 12 weeks ago. Admitted for cellulitis of left great toe. Also history of alchohol use. Patient provides following chronology Cellulitis of left great toe --initial surgery on the plantar aspect of the left great toe was [address] 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 Full code. Visit type - Emergency Visit Emergency Visit: Yes ED Registration Date: 11/23/18 Care time: The patient presented to the Emergency Department on the above date and was hospitalized for further evaluation of their emergent condition. - New Patient This patient is new to me today: Yes Date on this admission: 11/25/18 - Critical Care Critical Care patient: No
[2018-11-25] MEDS: VANCOMYCIN 1 GRAM (PRE-DOCKED) 1,000 MG/250 ML BAG IVPB SCH (13:29)
[2018-11-25] MEDS ORDERED: BACITRACIN 15 GM TUBE TOPICAL OINTMENT TP SCH (17:38)
--- NOTE | 2018-11-25 17:39 | CONSULT ---
- Consultation REQUESTING PROVIDER: CONSULT REQUEST: We have been asked to surgically evaluate this patient for left foot cellulitis. PCP:Tianna Wood HISTORY OF PRESENT ILLNESS: The patient is a 43 yo male who presented for Left foot infection. Currently he states that the erythema has improved. He has a chronic condition to his left foot which started several years ago while sustaining an injury to his foot. He was treated surgically. In between the time of the initial injury and surgery and 2nd procedure his wounds did heel. He was treated for a left leg injury with a PICC line and antibiotics in 2016. The foot had remained somewhat swollen throughout this course. Last July he had another procedure by a physical testing supervisor and was healing well. Several weeks ago he wore flip flops and his skin became irritated and then red/swollen. He denies any fevers. His blood glucose levels have been high since admission. PMHx: denies PSHx: denies Home Medications Medication Instructions Recorded NK [No Known Home Medication] 11/23/18 Allergies Allergy/AdvReac Type Severity Reaction Status Date / Time No Known Allergies Allergy Verified 11/23/18 18:34 REVIEW OF SYSTEMS: CONSTITUTIONAL: Absent: fever, chills CARDIOVASCULAR: Absent: chest pain, , palpitations, irregular heart rate RESPIRATORY: Absent: cough, shortness of breath GASTROINTESTINAL: Absent: abdominal pain, abdominal distension GENITOURINARY: Absent: dysuria, hematuria NEUROLOGIC: Absent: focal weakness, paresthesias PHYSICAL EXAM: GENERAL: Awake, alert, and fully oriented, in no acute distress. HEAD: Normal with no signs of trauma. MUSCULOSKELETAL: Normal ROM at all joints. No bony deformities or tenderness. LOWER EXTREMITIES: 2+ pulses, warm, well-perfused. No calf tenderness. No peripheral edema. Left foot with 1x 1cm dry scabbed area and mild erythema/ swelling over the great toe. No drainage noted. 2nd toe nail missing and dry/ scaly tissue to the distal tip. Mild erythema NEUROLOGICAL: Normal speech, gait not observed. PSYCH: Cooperative. Good eye contact. Appropriate mood and affect. Vital Signs Temperature 98.1 F 11/25/18 15:05 Pulse Rate 71 11/25/18 15:05 Respiratory Rate 18 11/25/18 15:05 Blood Pressure 138/74 11/25/18 15:05 O2 Sat by Pulse Oximetry (%) 94 L 11/25/18 15:05 Lab Results WBC 4.8 K/mm3 (4.0-10.8) 11/25/18 07:05 RBC 4.39 M/mm3 (4.00-5.60) 11/25/18 07:05 Hgb 13.6 GM/dl (11.7-16.9) 11/25/18 07:05 Hct 40.1 % (35.4-49) 11/25/18 07:05 MCV 91.3 fl (80-96) 11/25/18 07:05 MCHC 33.9 g/dl (32.0-35.9) 11/25/18 07:05 RDW 11.7 % (11.9-15.9) L 11/25/18 07:05 Plt Count 190 K/MM3 (134-434) 11/25/18 07:05 Sodium 138 mmol/L (136-145) 11/25/18 07:05 Potassium 3.7 mmol/L (3.5-5.1) 11/25/18 07:05 Chloride 103 mmol/L (98-107) 11/25/18 07:05 Carbon Dioxide 28 mmol/L (21-32) 11/25/18 07:05 Anion Gap 7 MMOL/L (8-16) L 11/25/18 07:05 BUN 12.0 mg/dl (7-18) 11/25/18 07:05 Creatinine 1.1 mg/dl (0.55-1.3) 11/25/18 07:05 Random Glucose 114 mg/dl (74-106) H 11/25/18 07:05 Calcium 8.6 mg/dl (8.5-10) 11/25/18 07:05 vascular study: no evidence of DVT LE MRI: soft tissue edema of 2nd distal toe with bone marrow edema. bone marrow edema of distal metatarsal head. c/w osteomyelitis Left foot xray: destructive process or proximal phalanx of great toe. Problem List - Problems (1) Toe infection Assessment/Plan: Case D/w Dr. Good and no vascular issues. He has palpable distal pulses with signs of improvement in infection. Plan is for oral antibiotic treatment and f/u with Dr. Simeon. He will plan for surgical debridment/cultures and further antibiotic treatment. Code(s): L08.9 - LOCAL INFECTION OF THE SKIN AND SUBCUTANEOUS TISSUE, UNSP
[2018-11-26] MEDS ORDERED: DEXTROSE 5%-WATER - 50 ML IVPB ONE ×2 (01:25→11:29)
[2018-11-26] MEDS ORDERED: PIPERACILLIN/TAZOBACTAM 3.375 GM VIAL IVPB ONE ×2 (01:25→11:29)
[2018-11-26] MEDS: PIPERACILLIN/TAZOB 3.375 GM 3.375 GM in DEXTROSE 5%-WATER - 50 ML IVPB SCH ×2 (01:33→11:34)
[2018-11-26 08:11] LABS: ALBUMIN 3.7 g/dl (3.4-5.0); BILIRUBIN,TOTAL 1.2 mg/dl (0.2-1); CALCIUM 8.7 mg/dl (8.5-10); MAGNESIUM 2.3 mg/dL (1.8-2.4); POTASSIUM 4.1 mmol/L (3.5-5.1); TOT PROT 6.6 g/dl (6.4-8.2)
[2018-11-26 08:16] LABS: BASO % 0.8 % (0-2.0); EOS % 2.8 % (0-4.5); HEMATOCRIT 41.2 % (35.4-49); HEMOGLOBIN 14.1 GM/dl (11.7-16.9); LYMPH % 38.9 % (8-40); MCH 31.1 pg (25.7-33.7); MCHC 34.2 g/dl (32.0-35.9); MEAN CELL VOLUME 90.8 fl (80-96); MEAN PLT VOLUME 8.3 fl (7.5-11.1); MONO % 9.3 % (3.8-10.2); NEUT % 48.2 % (42.8-82.8); PLATELET COUNT 203 K/MM3 (134-434); RBC 4.53 M/mm3 (4.00-5.60); RDW 11.6 % (11.9-15.9); WHITE BLOOD COUNT 4.3 K/mm3 (4.0-10.8)
[2018-11-26] MEDS ORDERED: THIAMINE HCL 100 MG TABLET (FP) PO SCH (10:00)
[2018-11-26] MEDS ORDERED: FOLIC ACID 1 MG TABLET (FP) PO SCH (10:00)
--- NOTE | 2018-11-26 10:31 | PN ---
Progress Note, Physician History of Present Illness: AWAKE , ALERT NO C/O FOOT PAIN NO FEVER/ CHILLS MRI C/W OSTEOMYELITIS 2ND TOE TOLERATING ANTIBIOTICS - Current Medication List Current Medications: Active Medications Acetaminophen (Tylenol -) 650 mg PO Q6H PRN PRN Reason: PAIN LEVEL 1 - 3 Last Admin: 11/24/18 14:08 Dose: 650 mg Bacitracin (Bacitracin -) 1 applic TP DAILY [facility] Docusate Sodium (Colace -) 100 mg PO DAILY [facility] Last Admin: 11/25/18 09:41 Dose: Not Given Folic Acid (Folic Acid -) 1 mg PO DAILY [facility] Heparin Sodium (Porcine) (Heparin -) 5,000 unit SQ BID [facility] Last Admin: 11/25/18 23:22 Dose: 5,000 unit Piperacillin Sod/Tazobactam (Sod 3.375 gm/ Dextrose) 50 mls @ 100 mls/hr IVPB Q8H-IV RINKU; Protocol Last Admin: 11/26/18 01:33 Dose: 100 mls/hr Vancomycin HCl (Vancomycin (Pre-Docked)) 1,000 mg in 250 mls @ 200 mls/hr IVPB Q24H RINKU; Protocol Last Admin: 11/25/18 13:29 Dose: 200 mls/hr Oxycodone/Acetaminophen (Percocet 5/325 -) 1 combo PO Q6H PRN PRN Reason: PAIN LEVEL 6-10 Last Admin: 11/25/18 23:22 Dose: 1 combo Thiamine HCl (Vitamin B1 -) 100 mg PO DAILY [facility] - Objective Vital Signs: Vital Signs Temperature 97.9 F 11/26/18 06:00 Pulse Rate 63 11/26/18 06:00 Respiratory Rate 18 11/26/18 06:00 Blood Pressure 125/67 11/26/18 06:00 O2 Sat by Pulse Oximetry (%) 99 11/26/18 06:00 Constitutional: Yes: No Distress Eyes: Yes: Conjunctiva Clear Cardiovascular: Yes: Regular Rate and Rhythm, S1, S2 Respiratory: Yes: CTA Bilaterally Gastrointestinal: Yes: Normal Bowel Sounds, Soft. No: Tenderness Extremities: Yes: Other (L GREAT TOE AND SECOND TOE WITH SWELLING/ ERYTHEMA. DRY ULCER DISTAL ASPECT 2ND TOE) Labs: CBC, BMP 11/26/18 07:21 11/26/18 07:21 Assessment/Plan CELLULITIS L FOOT OSTEOMYELITIS L 2ND TOE CONTINUE EMPIRIC VANCOMYCIN/ ZOSYN WILL NEED PICC FOR LONGTERM IV ANTIBIOTIC THERAPY PODIATRY EVALUATION ? BONE BX
[2018-11-26 10:44] VITALS: BP 122/68; PULSE 74; TEMP 97.6
--- NOTE | 2018-11-26 11:23 | DS ---
Physical Exam: SUBJECTIVE: Patient seen and examined OBJECTIVE: Vital Signs Period Temp Pulse Resp BP Sys/Palomino Pulse Ox Last 24 Hr 97.6 F-98.7 F 63-85 16-18 122-138/67-82 94-99 PHYSICAL EXAM GENERAL: The patient is awake, alert, and fully oriented, in no acute distress. HEAD: Normal with no signs of trauma. EYES: PERRL, extraocular movements intact, sclera anicteric, conjunctiva clear. ENT: Ears normal, nares patent, oropharynx clear without exudates, moist mucous membranes. NECK: Trachea midline, full range of motion, supple. LUNGS: Breath sounds equal, clear to auscultation bilaterally, no wheezes, no crackles, no accessory muscle use. HEART: Regular rate and rhythm, S1, S2 without murmur, rub or gallop. ABDOMEN: Soft, nontender, nondistended, normoactive bowel sounds, no guarding, no rebound, no hepatosplenomegaly, no masses. EXTREMITIES: 2+ pulses, warm, well-perfused, no edema. NEUROLOGICAL: Cranial nerves II through XII grossly intact. Normal speech, gait not observed. PSYCH: Normal mood, normal affect. SKIN: Warm, dry, normal turgor, no rashes or lesions noted. LABS Laboratory Results - last 24 hr 11/26/18 11/26/18 07:21 07:21 WBC 4.3 RBC 4.53 Hgb 14.1 Hct 41.2 MCV 90.8 MCH 31.1 MCHC 34.2 RDW 11.6 L Plt Count 203 MPV 8.3 Absolute Neuts (auto) 2.1 Neutrophils % 48.2 Lymphocytes % 38.9 Monocytes % 9.3 Eosinophils % 2.8 Basophils % 0.8 Sodium 138 Potassium 4.1 Chloride 104 Carbon Dioxide 27 Anion Gap 7 L BUN 14.0 Creatinine 1.0 Est GFR (CKD-EPI)AfAm 104.88 Est GFR (CKD-EPI)NonAf 90.49 Random Glucose 106 Calcium 8.7 Magnesium 2.3 Total Bilirubin 1.2 H AST 18 ALT 29 Alkaline Phosphatase 73 Total Protein 6.6 Albumin 3.7 HOSPITAL COURSE: Date of Admission:11/23/18 Date of Discharge: 11/26/18Thursday appt with [facility] will schedule for bone biopsy, PICC line, will get IV abx in coordination with Dr. Zayas Discharge Summary Reason For Visit: LEFT LEG SWELLING WOUND TO LEFT GREAT TOE Current Active Problems Left leg cellulitis (Acute) Condition: Stable - Instructions Diet, Activity, Other Instructions: A prescription has been sent to your pharmacy for Augmentin which is an antibiotic. Take this medication as directed. A prescription has also been sent for Bacitracin which you should apply to your toe wounds once daily. You have an appointment to see metal engineering process worker Dr. Zia Simeon on November 30 at 1:00pm at the [facility] at [facility], fifth floor. Dr. Simeon will see you that day and then will schedule you for a bone biopsy. Return to the emergency department for any new or worsening symptoms. Referrals: Zia Simeon MD [Staff Physician] - Disposition: HOME - Home Medications Comprehensive Discharge Medication List: Ambulatory Orders NK [No Known Home Medication] 11/23/18
--- NOTE | 2018-11-26 11:31 | PN ---
Progress Note (short form) - Note Progress Note: PT seen at bedside in NAD . Seen by Infectious Disease for hx of cellulitis hallux left and second toe osteomyelitis 2nd digit left foot PT has history of care home infection to left great toe since 2016. PT has had multiple surgeries on hallux . Recent excacerbation of left hallux infection and 2nd toe infection as well. MRI performed consistent with osteomyelitis 2nd digit left foot Denies fever/ N/V/ sweats or chills. ORLIN:Palpable pedal pulses NVSI Left 1st mpj (+) edema no erythema, healed wound plantar aspect of 1st mpj. Non tender on palpation. NO signs of active infection or ascending cellulitis Second digit left foot. Necrotic ulcer distal aspect of second digit. (+) edema , (+) erythema 2nd toe. (+) Calor noted Negative adenopathy NO signs of ascending cellulitis Impresssion: Osteomyelitis 2nd toe Plan: Medical history reviewed in detail Discussed treatment options with pt both conservative and surgical Due to history I agree with PICC line after bone biopsy and culture PT will follow post operatively in the wound care center at [facility] . Discussed risks benefits alternatives as well as possible complications All questions and concerns addressed CONT local wound care Discussed use of SX shoe Thank you for courtesy of this consult
[2018-11-26] MEDS: HEPARIN NA (PORCINE) 5,000 UNITS/ML 1ML VIAL SQ SCH (11:33)
[2018-11-26] MEDS: DOCUSATE SODIUM 100 MG CAPSULE (FP) PO SCH (11:36)
[2018-11-26] MEDS: VANCOMYCIN 1 GRAM (PRE-DOCKED) 1,000 MG/250 ML BAG IVPB SCH (13:52)
== END 2018-11-26 13:30 | disposition home or self-care (01) | DRG 603 ==
LOC: FER 18:31 → FM/S 21:49
PROVIDERS: ADMIT Internal Medicine; ATTEND Nurse Practitioner Acute Care
DX: L03.116 Cellulitis of left lower limb (principal); M86.8X7 Other osteomyelitis, ankle and foot; L08.9 Local infection of the skin and subcutaneous tissue, unspecified
CPT/HCPCS: 36415; 71045-TC-FY; 73590-TC-LT-FY; 73630-TC-LT; 73718-TC-LT; 80048; 80053; 81003; 83036; 83605; 83735; 85025; 85651; 86140; 87040; 93005; 93971-TC; 99284-25; G0480; J1644

== ENCOUNTER 2018-12-14 07:37 | Day surgery (SDC) | payer OTHER ==
[2018-12-06 16:28] VITALS: BMI 30.4
[~2018-12-14 07:37] MED LIST: BACITRACIN 15 GM TUBE TOPICAL OINTMENT TP ONE; BUPIVACAINE HCL/PF 0.5% (5MG/ML) 10 ML VIAL IJ ONE; LIDOCAINE HCL 1%, 10 MG/ML (20ML VIAL) INF ONE
[2018-12-14] MEDS ORDERED: LIDOCAINE HCL 1%, 10 MG/ML (20ML VIAL) ONE (07:41)
[2018-12-14] MEDS ORDERED: BUPIVACAINE HCL/PF 0.5% (5MG/ML) 10 ML VIAL ONE (07:41)
[2018-12-14] MEDS ORDERED: BACITRACIN 15 GM TUBE TOPICAL OINTMENT ONE (07:41)
[2018-12-14] MEDS ORDERED: LIDOCAINE HCL/PF 2% SDV 5ML VIAL ONE (08:35)
[2018-12-14] MEDS ORDERED: PROPOFOL 20 ML ONE ×2 (08:36)
[2018-12-14] MEDS ORDERED: MIDAZOLAM HCL 2 MG/2 ML SINGLE DOSE VIAL ONE (08:36)
[2018-12-14] MEDS ORDERED: BUPIVACAINE HCL/PF 0.5% (5MG/ML) 10 ML VIAL IJ ONE (09:05)
[2018-12-14] MEDS ORDERED: LIDOCAINE HCL 1%, 10 MG/ML (20ML VIAL) INF ONE (09:05)
[2018-12-14] MEDS ORDERED: ceFAZolin SODIUM 1 GM VIAL ONE (09:26)
--- NOTE | 2018-12-14 09:42 | OP ---
Operative Note - Note: Operative Date: 12/14/18 Pre-Operative Diagnosis: left second digit chronic ulcer with osteomyelitis Operation: left second digit distal symes removal of tissue and bone with bone biopsy Post-Operative Diagnosis: Same as Pre-op Surgeon: Zia Simeon Anesthesia: Local, MAC Specimens Removed: distal phalanx left second toe Estimated Blood Loss (mls): 10 Operative Report Dictated: Yes
[2018-12-14 10:03] VITALS: TEMP 97.9
[2018-12-14 11:15] VITALS: BP 123/73; PULSE 77
--- NOTE | 2018-12-14 19:30 | OP ---
DATE OF OPERATION: 12/14/2018 PREOPERATIVE DIAGNOSIS: Left 2nd toe neuropathic ulcer with osteomyelitis. POSTOPERATIVE DIAGNOSIS: Left 2nd toe neuropathic ulcer with osteomyelitis. PROCEDURE: Left 2nd toe bone biopsy. SURGEON: Zia Simeon DPM INFORMATION BROKER: None. ANESTHESIA: IV sedation with local. HEMOSTASIS: Surgical dissection. ESTIMATED BLOOD LOSS: Minimal. PATHOLOGY: Bone left 2nd toe. DESCRIPTION OF PROCEDURE: Patient was brought to the operating room and placed on the operating table in the supine position. I applied a pneumatic ankle tourniquet, but it was not used during the course of the procedure. Following induction of IV sedation, local anesthesia was achieved using 10 mL of 2% lidocaine plain. The left foot was scrubbed, prepped, and draped in the usual sterile fashion. Attention was directed to the left 2nd toe where a distal tuft ulcer neuropathic and chronic was visualized and appreciated. I began by performing a fish mouth incision over the distal aspect of the 2nd toe. Incision was carried distally and plantarly to circumscribe the chronic ulcer. This was ellipsed as well as the skin and skin structures of the distal aspect of the 2nd toe. The incision was deepened using sharp and blunt dissection taking care to retract vital neural and vascular structures. All bleeders were cauterized and ligated as needed. Next, the distal phalanx was disarticulated at the interphalangeal joint. The distal pharynx was removed. A portion of the bone was sectioned for bone culture, and the remainder was sent to Pathology for analysis. A wound culture was then obtained. Surgical site was copiously irrigated with sterile saline. The skin was coapted and maintained loosely using 3-0 nylon in a simple interrupted suture fashion. Following conclusion of the procedure, the surgical site was covered with Xeroform, and a sterile compressive dressing was applied to the left foot consisting of sterile gauze, clean Kerlix, and an Lenin wrap. Patient tolerated the procedure and anesthesia well without complications. He was transferred from the operating room to the recovery unit with vital signs stable and neurovascular intact to the left foot. NEHA [id number] cc: [facility]
--- NOTE | 2018-12-15 20:23 | PATH ---
Surgical Pathology Report Patient Name: SANDRA JIMENES [facility]. Rec. #: [id number] /Age/Gender: 1975 (Age: 43) / M Account: [id number] Location: [facility] SURGICAL Taken: 12/14/2018 Received: 12/14/2018 Reported: 12/15/2018 Physicians: Zia Simeon DPM Specimen(s) Received BONE LEFT 2ND TOE Clinical History Osteomyelitis left second toe Final Diagnosis SECOND TOE, LEFT, AMPUTATION: DIGIT WITH MARKED ACUTE AND CHRONIC INFLAMMATION WITH ASSOCIATED ULCERATION. UNDERLYING BONE WITH ACUTE AND CHRONIC OSTEOMYELITIS. SURGICAL MARGINS ARE VIABLE. Electronically Signed Carmen Quezada M.D. Gross Description Received in formalin labeled "bone biopsy left second toe," is a 2.5 x 2.2 x 1.8 cm distal toe amputation specimen. The epidermal surface displays a 1.7 x 1.3 cm ulcerated lesion at the distal end of the toe. The lesion extends to and possibly involves the underlying bone. Assistant Curator sections are submitted in 3 cassettes as follows: 1-lesion with underlying bone, following decalcification; 2-bone margin, following decalcification; 3-skin and soft tissue margin. /12/14/201812/14/2018
== END 2018-12-14 11:00 | disposition home or self-care (01) ==
LOC: JASU-SURG 07:37
PROVIDERS: ATTEND Student in an Organized Health Care Education/Training Program
PROC: 0SBQ0ZX Excision of Left Toe Phalangeal Joint, Open Approach, Diagnostic (ICD-10-PCS; 2018-12-14)
PROC: 0QBR0ZX Excision of Left Toe Phalanx, Open Approach, Diagnostic (ICD-10-PCS; principal; 2018-12-14 09:00)
DX: L97.528 Non-pressure chronic ulcer of other part of left foot with other specified severity (principal); M86.172 Other acute osteomyelitis, left ankle and foot
CPT/HCPCS: 87070; 87075; 87077; 87205; 88304-TC; 88311-TC

== ENCOUNTER → 2019-11-22 | Day surgery (SDC) | payer OTHER | END | disposition home or self-care (01) | LOC: JRADIR 11:38 | PROVIDERS: ATTEND Internal Medicine | PROC: 02HV33Z Insertion of Infusion Device into Superior Vena Cava, Percutaneous Approach (ICD-10-PCS; principal; 2019-11-22) | PROC: B518ZZA Fluoroscopy of Superior Vena Cava, Guidance (ICD-10-PCS; 2019-11-22) | DX: M86.9 Osteomyelitis, unspecified (principal) | CPT/HCPCS: 11042; 36569; 77001-TC-FY; C1751 ==

== ENCOUNTER 2020-03-20 04:58 | Day surgery (SDC) | payer OTHER ==
[2020-03-16 17:19] VITALS: BMI 32.1
[2020-03-20] MEDS ORDERED: LIDOCAINE HCL 1%, 10 MG/ML (20ML VIAL) ONE (07:16)
[2020-03-20] MEDS ORDERED: SUCCINYLCHOLINE CHLORIDE 200 MG/10 ML SYRINGE ONE (07:39)
[2020-03-20] MEDS ORDERED: PROPOFOL 20 ML ONE ×3 (07:39)
[2020-03-20] MEDS ORDERED: MIDAZOLAM HCL 2 MG/2 ML SINGLE DOSE VIAL ONE ×3 (07:40→08:19)
[2020-03-20] MEDS ORDERED: VANCOMYCIN 1,000 MG VIAL (RESTRICTED TO ID ONLY) IVPB ONE (08:10)
[2020-03-20] MEDS ORDERED: LIDOCAINE HCL 1%, 10 MG/ML (20ML VIAL) NR ONE (08:15)
[2020-03-20] MEDS ORDERED: ONDANSETRON 4 MG/2 ML VIAL IVPUSH PRN (08:42)
[2020-03-20] MEDS ORDERED: oxyCODONE HCL 5 MG TABLET PO PRN ×2 (08:42)
[2020-03-20] MEDS ORDERED: LACTATED RINGERS SOLUTION 1,000 ML IV SCH (08:45)
[2020-03-20 09:44] VITALS: TEMP 97.3
[2020-03-20] MEDS ORDERED: oxyCODONE HCL 5 MG TABLET ONE (09:49)
[2020-03-20] MEDS ORDERED: oxyCODONE HCL 5 MG TABLET PO ONE (10:00)
[2020-03-20 10:44] VITALS: BP 133/81; PULSE 76
--- NOTE | 2020-03-20 22:14 | OP ---
Operative Note - Note: Operative Date: 03/20/20 Pre-Operative Diagnosis: Right hallux rigidus; right hallux neuropathic ulcer Operation: right hallux debridement of ulcer; right Estrada bunionectomy Post-Operative Diagnosis: Same as Pre-op Surgeon: Zia Simeon Anesthesia: Local, MAC Specimens Removed: bone right hallux Estimated Blood Loss (mls): 5 Instrument used (Debridements only): #15 blade scalpel
--- NOTE | 2020-03-21 15:50 | PATH ---
Surgical Pathology Report Patient Name: SANDRA JIMENES [facility]. Rec. #: [id number] /Age/Gender: 1975 (Age: 45) / M Account: [id number] Location: [facility] SURGICAL Taken: 03/20/2020 Received: 03/20/2020 Reported: 03/21/2020 Physicians: Zia Simeon DPM Specimen(s) Received A: BONE RIGHT FOOT B: PROXIMAL MARGIN Clinical History Hallux rigidus right foot, non-PRS chronic ulcer Final Diagnosis A. BONE, FOOT, RIGHT, BUNIONECTOMY: BONE WITH FATTY MARROW. B. PROXIMAL MARGIN, EXCISION: BONE WITH FATTY MARROW. Electronically Signed Carmen Quezada M.D. Gross Description A. Received in formalin labeled "bone right foot," is a 2.4 x 1.8 x 1.1 cm [place]-yellow portion of bone. [employer] Lead sections are submitted in one cassette, following decalcification. B. Received in formalin labeled "proximal margin," is a 1.3 x 0.9 x 0.8 cm [place]-yellow portion of bone. The specimen is trisected and entirely submitted in one cassette, following decalcification. /03/20/2020 saudi03/20/2020
--- NOTE | 2020-03-22 12:16 | OP ---
DATE OF OPERATION: 03/20/2020 PREOPERATIVE DIAGNOSES: 1. Right hallux neuropathic ulcer. 2. Right foot hallux rigidus. POSTOPERATIVE DIAGNOSES: 1. Right hallux neuropathic ulcer. 2. Right foot hallux rigidus. PROCEDURE: 1. Right great toe debridement of ulcer. 2. Right foot Estrada bunionectomy. SURGEON: Zia Simeon DPM STARTER CUP POWDER MIXER: PGY2 medical practitioners [facility]. ANESTHESIA: IV sedation with local. HEMOSTASIS: Pneumatic ankle tourniquet. ESTIMATED BLOOD LOSS: 5 mL. PATHOLOGY: Bone right hallux. COMPLICATIONS: None. DESCRIPTION OF PROCEDURE: The patient was brought to the operating room and placed on the operating table in the supine position. I applied a pneumatic ankle tourniquet to the patient's right ankle and set it to 250 mmHg. Following the induction of IV sedation, local anesthesia was achieved using 10 mL of 2% lidocaine. The right foot was prepped and draped in the usual sterile fashion. The tourniquet was inflated. Attention was directed to the right hallux where a neuropathic ulcer at the plantar aspect of the interphalangeal joint was visualized and appreciated. I began by performing the initial debridement of the right hallux neuropathic ulcer to the level of skin and subcutaneous tissue utilizing a sterile 15-blade scalpel and forceps. All devitalized tissue was subsequently removed until there was healthy granular tissue persistent. Next, I performed a 5.20-cm linear longitudinal incision over the dorsal medial aspect of the first metatarsophalangeal joint. The incision was deepened using sharp and blunt dissection, taking care to retract vital neural and vascular structures. All bleeders were cauterized and ligated as needed. Next, I performed a dorsal linear capsulotomy overlying the first metatarsophalangeal joint. The capsular and ligamentous attachments were reflected from the first metatarsophalangeal joint. There was dorsal whipping and hypertrophic bone noted at the base of the proximal phalanx, creating a hallux rigidus. Next, the McGlamry elevator was introduced into the joint to release any plantar ligamentous attachments. Once all deep capsular and ligamentous structures were reflected from the first metatarsophalangeal joint, the base of the proximal phalanx was resected at the proximal one-third of the proximal phalanx utilizing a sagittal saw. The base of the proximal phalanx was removed in its entirety and passed from the operative field. A portion of the bone was sectioned for bone pathology in order to evaluate clear margins of osteomyelitis. The surgical site was copiously irrigated with sterile saline with bacitracin. The capsule of the first metatarsophalangeal joint was imbricated in the space where the base of the proximal phalanx was resected. This was then reapproximated using 3-0 Vicryl. The deep capsular remaining structures were reapproximated and coapted using 3-0 Vicryl. Subcutaneous tissues were reapproximated and coapted using 4-0 Vicryl. The skin was coapted and maintained using 3-0 nylon in a simple interrupted suture fashion. After conclusion of the procedure, a Prevena pressure therapy dressing was applied to the dorsal incision. The Prevena device was turned on. There was appropriate suction achieved at the incision site. There was no leakage of the negative pressure. Following conclusion of the procedure, the ulcer was covered with Xeroform and a sterile compressive dressing was applied to the right foot consisting of sterile gauze, Kerlix, and an Lenin wrap. The tourniquet was deflated and immediate hyperemic response was exhibited to the right foot. Patient tolerated the procedure and anesthesia well without complications. He was transferred from the operating room to the recovery unit with vital signs stable and neurovascular structures intact to the right foot. NEHA [id number] cc: [facility]
== END 2020-03-20 12:46 | disposition home or self-care (01) ==
LOC: JASU-SURG 04:58
PROVIDERS: ATTEND Student in an Organized Health Care Education/Training Program
PROC: 0QBN0ZZ Excision of Right Metatarsal, Open Approach (ICD-10-PCS; 2020-03-20)
PROC: 0JBQ0ZZ Excision of Right Foot Subcutaneous Tissue and Fascia, Open Approach (ICD-10-PCS; 2020-03-20)
PROC: 0QBQ0ZZ Excision of Right Toe Phalanx, Open Approach (ICD-10-PCS; principal; 2020-03-20 08:00)
DX: M20.21 Hallux rigidus, right foot (principal); L97.512 Non-pressure chronic ulcer of other part of right foot with fat layer exposed
CPT/HCPCS: 73630-TC-RT-FY; 88304-TC; 88311-TC

== ENCOUNTER 2021-01-02 10:16 | Inpatient (IN) | payer OTHER ==
[2021-01-02 10:22] VITALS: BMI 31.5
[2021-01-02] MEDS ORDERED: VANCOMYCIN PREMIX 1.75 GM 1,750 MG/350 ML PIGGYBACK IVPB ONE ×2 (12:31→21:00)
[2021-01-02] MEDS ORDERED: PIPERACILLIN/TAZOB 4.5 GM 4.5 GM in DEXTROSE 5%-WATER 100 ML IVPB ONE ×2 (12:31→21:00)
[2021-01-02 12:36] LABS: BASO % 0.5 % (0-2.0); EOS % 1.2 % (0-4.5); HEMOGLOBIN 15.3 GM/dL (11.7-16.9); LYMPH % 21.4 % (8-40); MCH 31.8 pg (25.7-33.7); MCHC 35.6 g/dl (32.0-35.9); MEAN CELL VOLUME 89.3 fl (80-96); MEAN PLT VOLUME 7.7 fl (7.5-11.1); MONO % 6.2 % (3.8-10.2); NEUT % 70.7 % (42.8-82.8); PLATELET COUNT 212 10^3/uL (134-434); RBC 4.82 M/mm3 (4.00-5.60); RDW 12.3 % (11.9-15.9); WHITE BLOOD COUNT 5.8 K/mm3 (4.0-10.0)
[2021-01-02] MEDS ORDERED: VANCOMYCIN 500 MG VIAL (RESTRICTED TO ID ONLY) ONE (12:37)
[2021-01-02] MEDS ORDERED: PIPERACILLIN/TAZOB 4.5 GM 4.5 GM/100 ML BAG IVPB ONE (12:37)
[2021-01-02 12:45] LABS: INR 1.04 (0.83-1.09); PROTHROMBIN TIME (PATIENT) 12.6 SEC (9.7-13.0)
[2021-01-02] MEDS ORDERED: DEXTROSE 5%-LACTATED RINGERS 1,000 ML IV SCH (12:45)
[2021-01-02 13:03] LABS: ALBUMIN 3.8 g/dl (3.4-5.0); BLOOD UREA NITROGEN 14.4 mg/dL (7-18)
[2021-01-02 13:07] LABS: TOT PROT 7.4 g/dl (6.4-8.2)
[2021-01-02 13:17] LABS: ERYTHROCYTE SEDIMENTATION RATE 8 mm/hr (0-10)
[2021-01-02] MEDS ORDERED: SODIUM CHLORIDE 1,000 ML IV SCH (13:45)
[2021-01-02] MEDS ORDERED: PIPERACILLIN/TAZOB 3.375 GM 3.375 GM in DEXTROSE 5%-WATER - 50 ML IVPB SCH ×2 (14:00→18:00)
[2021-01-02] MEDS ORDERED: LIDOCAINE HCL 2% (20ML MULTI-DOSE VIAL) ONE (16:32)
[2021-01-02] MEDS ORDERED: MIDAZOLAM HCL 2 MG/2 ML SINGLE DOSE VIAL ONE (17:49)
[2021-01-02] MEDS ORDERED: PROPOFOL 20 ML ONE (18:01)
[2021-01-02] MEDS ORDERED: LIDOCAINE HCL 2% (50ML VIAL) INF ONE (18:12)
[2021-01-02] MEDS ORDERED: ONDANSETRON 4 MG/2 ML VIAL IVPUSH PRN (19:01)
[2021-01-02] MEDS ORDERED: LABETALOL HCL 5 MG/1 ML (100MG/20 ML VIAL) IVPUSH PRN (19:01)
[2021-01-02] MEDS ORDERED: LACTATED RINGERS SOLUTION 1,000 ML IV SCH (19:15)
[2021-01-02] MEDS ORDERED: VANCOMYCIN 1,000 MG VIAL (RESTRICTED TO ID ONLY) IVPB ONE (21:37)
[2021-01-02] MEDS ORDERED: PIPERACILLIN/TAZOBACTAM 4.5 GM VIAL IVPB ONE (22:35)
[2021-01-03] MEDS ORDERED: VANCOMYCIN PREMIX 1.75 GM 1,750 MG/350 ML PIGGYBACK IVPB ONE (00:30)
[2021-01-03] MEDS ORDERED: VANCOMYCIN PREMIX 1.75 GM 1,750 MG/350 ML PIGGYBACK IVPB SCH ×2 (01:00)
[2021-01-03] MEDS: oxyCODONE HCL 5 MG TABLET PO PRN ×3 (06:11→22:18)
[2021-01-03 07:49] LABS: BASO % 0.9 % (0-2.0); EOS % 1.5 % (0-4.5); HEMATOCRIT 40.5 % (35.4-49); HEMOGLOBIN 14.3 GM/dL (11.7-16.9); LYMPH % 18.2 % (8-40); MCH 32.3 pg (25.7-33.7); MCHC 35.2 g/dl (32.0-35.9); MEAN CELL VOLUME 91.8 fl (80-96); MEAN PLT VOLUME 8.2 fl (7.5-11.1); MONO % 7.9 % (3.8-10.2); NEUT % 71.5 % (42.8-82.8); PLATELET COUNT 195 10^3/uL (134-434); RBC 4.42 M/mm3 (4.00-5.60); RDW 12.3 % (11.9-15.9); WHITE BLOOD COUNT 5.7 K/mm3 (4.0-10.0)
[2021-01-03 07:58] LABS: BLOOD UREA NITROGEN 14.5 mg/dL (7-18)
[2021-01-03 07:59] LABS: ALBUMIN 3.4 g/dl (3.4-5.0); MAGNESIUM 2.4 mg/dL (1.8-2.4)
[2021-01-03 08:02] LABS: CREATININE 1.2 mg/dL (0.55-1.3); PHOSPHOROUS 4.1 mg/dL (2.5-4.9)
[2021-01-03 08:03] LABS: BILIRUBIN,TOTAL 0.7 mg/dL (0.2-1); TOT PROT 6.2 g/dl (6.4-8.2)
[2021-01-03] MEDS ORDERED: PIPERACILLIN/TAZOB 3.375 GM 3.375 GM in DEXTROSE 5%-WATER - 50 ML IVPB SCH (15:00)
[2021-01-03] MEDS ORDERED: DEXTROSE 5%-WATER 100 ML IVPB ONE (22:00)
[2021-01-03] MEDS ORDERED: CEFEPIME HCL 1 GM VIAL (RESTRICTED TO ID) ONE (22:00)
[2021-01-03] MEDS: CEFEPIME 1 GM in DEXTROSE 5%-WATER 100 ML IVPB SCH (22:18)
[2021-01-03] MEDS: amLODIPine BESYLATE 5 MG TABLET (FP) PO SCH (22:18)
[2021-01-04 08:12] LABS: BASO % 0.7 % (0-2.0); EOS % 2.8 % (0-4.5); HEMATOCRIT 40.6 % (35.4-49); HEMOGLOBIN 14.2 GM/dL (11.7-16.9); LYMPH % 26.2 % (8-40); MCHC 35.1 g/dl (32.0-35.9); MEAN CELL VOLUME 91.3 fl (80-96); MEAN PLT VOLUME 8.2 fl (7.5-11.1); MONO % 8.9 % (3.8-10.2); NEUT % 61.4 % (42.8-82.8); PLATELET COUNT 173 10^3/uL (134-434); RBC 4.44 M/mm3 (4.00-5.60); RDW 12.3 % (11.9-15.9); WHITE BLOOD COUNT 4.1 K/mm3 (4.0-10.0)
[2021-01-04 08:36] LABS: CALCIUM 8.4 mg/dL (8.5-10.1)
[2021-01-04 08:37] LABS: BLOOD UREA NITROGEN 11.9 mg/dL (7-18)
[2021-01-04] MEDS ORDERED: DEXTROSE 5%-WATER 100 ML IVPB ONE ×2 (09:27→21:55)
[2021-01-04] MEDS ORDERED: CEFEPIME HCL 1 GM VIAL (RESTRICTED TO ID) ONE ×2 (09:27→21:54)
[2021-01-04] MEDS: oxyCODONE HCL 5 MG TABLET PO PRN ×2 (09:33→21:58)
[2021-01-04] MEDS: amLODIPine BESYLATE 5 MG TABLET (FP) PO SCH (09:34)
[2021-01-04] MEDS: CEFEPIME 1 GM in DEXTROSE 5%-WATER 100 ML IVPB SCH ×2 (09:34→21:57)
[2021-01-04] MEDS: ENOXAPARIN NA (PORCINE) 40 MG/0.4 ML DISP.SYRIN SQ SCH (09:34)
[2021-01-04] MEDS: VANCOMYCIN PREMIX 1.5 GM 1,500 MG/300 ML BAG IVPB SCH ×2 (12:17→23:55)
[2021-01-04] MEDS ORDERED: PT OWN MED DRAWER 7, Y5N ONE (23:53)
[2021-01-05 07:49] LABS: BASO % 0.8 % (0-2.0); HEMATOCRIT 40.7 % (35.4-49); HEMOGLOBIN 14.5 GM/dL (11.7-16.9); MCH 31.9 pg (25.7-33.7); MCHC 35.5 g/dl (32.0-35.9); MEAN CELL VOLUME 89.7 fl (80-96); MONO % 7.6 % (3.8-10.2); NEUT % 65.6 % (42.8-82.8); PLATELET COUNT 178 10^3/uL (134-434); RBC 4.54 M/mm3 (4.00-5.60); RDW 12.1 % (11.9-15.9); WHITE BLOOD COUNT 4.7 K/mm3 (4.0-10.0)
[2021-01-05 08:06] LABS: ALBUMIN 3.5 g/dl (3.4-5.0); CALCIUM 8.5 mg/dL (8.5-10.1); MAGNESIUM 2.3 mg/dL (1.8-2.4)
[2021-01-05 08:11] LABS: BILIRUBIN,TOTAL 0.8 mg/dL (0.2-1); TOT PROT 6.8 g/dl (6.4-8.2)
[2021-01-05] MEDS ORDERED: CEFEPIME HCL 1 GM VIAL (RESTRICTED TO ID) ONE ×2 (10:27→20:54)
[2021-01-05] MEDS ORDERED: DEXTROSE 5%-WATER 100 ML IVPB ONE ×2 (10:27→20:54)
[2021-01-05] MEDS: CEFEPIME 1 GM in DEXTROSE 5%-WATER 100 ML IVPB SCH ×2 (10:33→21:02)
[2021-01-05] MEDS: amLODIPine BESYLATE 5 MG TABLET (FP) PO SCH (10:33)
[2021-01-05] MEDS: ENOXAPARIN NA (PORCINE) 40 MG/0.4 ML DISP.SYRIN SQ SCH (10:33)
[2021-01-05] MEDS: oxyCODONE HCL 5 MG TABLET PO PRN ×2 (10:58→23:40)
[2021-01-06] MEDS ORDERED: DEXTROSE 5%-WATER 100 ML IVPB ONE (10:41)
[2021-01-06] MEDS ORDERED: CEFEPIME HCL 1 GM VIAL (RESTRICTED TO ID) ONE (10:41)
[2021-01-06] MEDS: ENOXAPARIN NA (PORCINE) 40 MG/0.4 ML DISP.SYRIN SQ SCH (10:53)
[2021-01-06] MEDS: amLODIPine BESYLATE 5 MG TABLET (FP) PO SCH (10:53)
[2021-01-06] MEDS: CEFEPIME 1 GM in DEXTROSE 5%-WATER 100 ML IVPB SCH (10:53)
[2021-01-06] MEDS: oxyCODONE HCL 5 MG TABLET PO PRN ×2 (11:02→21:32)
[2021-01-06] MEDS: CEFAZOLIN 2 GM in DEXTROSE 5%-WATER - 100 ML IVPB SCH (17:56)
[2021-01-07] MEDS ORDERED: PT OWN MED DRAWER 7, Y5N ONE ×2 (01:03→09:22)
[2021-01-07] MEDS: CEFAZOLIN 2 GM in DEXTROSE 5%-WATER - 100 ML IVPB SCH ×2 (02:01→09:33)
[2021-01-07 07:39] LABS: EOS % 2.7 % (0-4.5); HEMATOCRIT 42.2 % (35.4-49); HEMOGLOBIN 14.9 GM/dL (11.7-16.9); LYMPH % 24.4 % (8-40); MCH 31.6 pg (25.7-33.7); MCHC 35.2 g/dl (32.0-35.9); MEAN CELL VOLUME 89.9 fl (80-96); MONO % 7.8 % (3.8-10.2); NEUT % 64.1 % (42.8-82.8); PLATELET COUNT 183 10^3/uL (134-434); RDW 12.5 % (11.9-15.9); WHITE BLOOD COUNT 4.5 K/mm3 (4.0-10.0)
[2021-01-07 07:49] LABS: ALBUMIN 3.6 g/dl (3.4-5.0); BLOOD UREA NITROGEN 11.4 mg/dL (7-18); CALCIUM 8.5 mg/dL (8.5-10.1)
[2021-01-07 07:51] LABS: MAGNESIUM 2.3 mg/dL (1.8-2.4)
[2021-01-07 07:53] LABS: CREATININE 0.9 mg/dL (0.55-1.3)
[2021-01-07 07:54] LABS: BILIRUBIN,TOTAL 0.7 mg/dL (0.2-1); TOT PROT 7.4 g/dl (6.4-8.2)
[2021-01-07 09:10] VITALS: BP 124/80; PULSE 66; TEMP 97.9
[2021-01-07] MEDS: amLODIPine BESYLATE 5 MG TABLET (FP) PO SCH (09:33)
[2021-01-07] MEDS: ENOXAPARIN NA (PORCINE) 40 MG/0.4 ML DISP.SYRIN SQ SCH (09:33)
[2021-01-07] MEDS ORDERED: LACTOBACILLUS ACIDOPHILUS 1 TABLET PO SCH (10:30)
[2021-01-07] MEDS ORDERED: AMOX TR/POT CLAV 875MG/125MG TABLETS (FP) PO SCH (17:30)
== END 2021-01-07 14:11 | disposition home or self-care (01) | DRG 581 ==
LOC: JER 10:16 → JERBED 13:54 → J4S 23:11
PROVIDERS: ADMIT Internal Medicine; ATTEND Nurse Practitioner Family
PROC: 0Y6R0Z2 Detachment at Right 2nd Toe, Mid, Open Approach (ICD-10-PCS; principal; 2021-01-02 17:00)
DX: L97.518 Non-pressure chronic ulcer of other part of right foot with other specified severity (principal); I73.9 Peripheral vascular disease, unspecified; I10 Essential (primary) hypertension
CPT/HCPCS: 36415; 71045-TC-FY; 73630-TC-RT-FY; 80048; 80053; 83036; 83735; 84100; 85025; 85610; 85651; 86140; 86850; 86900; 86901; 87070; 87075; 87081; 87186; 87205; 88304-TC; 88305-TC; 88311-TC; 93005; 93010; 94760; 99285-25; C9803; G0480; J3370; U0003; U0005

== ENCOUNTER 2021-11-19 04:17 | Day surgery (SDC) | payer OTHER ==
[2021-11-14 09:06] VITALS: BMI 31.5
[2021-11-19] MEDS ORDERED: LIDOCAINE HCL 2% (20ML MULTI-DOSE VIAL) ONE ×2 (07:25→09:09)
[2021-11-19] MEDS ORDERED: MIDAZOLAM HCL 2 MG/2 ML SINGLE DOSE VIAL ONE (09:24)
[2021-11-19] MEDS ORDERED: PROPOFOL 20 ML ONE (09:24)
[2021-11-19] MEDS ORDERED: ONDANSETRON 4 MG/2 ML VIAL IVPUSH PRN (09:48)
[2021-11-19] MEDS ORDERED: oxyCODONE HCL 5 MG TABLET PO PRN (09:48)
[2021-11-19] MEDS ORDERED: LIDOCAINE HCL 2% (50ML VIAL) NR ONE (09:55)
[2021-11-19] MEDS ORDERED: LACTATED RINGERS SOLUTION 1,000 ML IV SCH (10:00)
[2021-11-19] MEDS ORDERED: VANCOMYCIN 1,000 MG VIAL (RESTRICTED TO ID ONLY) ONE (10:28)
[2021-11-19 14:15] VITALS: BP 132/73; PULSE 82; TEMP 97.1
== END 2021-11-19 13:50 | disposition home or self-care (01) ==
LOC: JASU-SURG 04:17
PROVIDERS: ATTEND Student in an Organized Health Care Education/Training Program
PROC: 0Y6U0Z3 Detachment at Left 3rd Toe, Low, Open Approach (ICD-10-PCS; principal; 2021-11-19 09:00)
DX: M86.8X7 Other osteomyelitis, ankle and foot (principal)
CPT/HCPCS: 73630-TC-LT; 87070; 87075; 87186; 87205; 88305-TC; 88311-TC; 94760

== ENCOUNTER 2023-04-29 04:31 | Day surgery (SDC) | payer OTHER ==
[2023-04-29 08:51] VITALS: BMI 30.4
[2023-04-29] MEDS ORDERED: LIDOCAINE HCL 1%, 10 MG/ML (20ML VIAL) ONE (10:54)
[2023-04-29] MEDS ORDERED: LIDOCAINE 1%/EPI 1:100000 (20 ML MULTI DOSE VIAL) ONE (10:54)
[2023-04-29] MEDS ORDERED: MIDAZOLAM HCL 2 MG/2 ML SINGLE DOSE VIAL ONE ×2 (11:14→12:28)
[2023-04-29] MEDS ORDERED: ceFAZolin SODIUM 1 GM VIAL IVPB ONE ×2 (11:23→11:35)
[2023-04-29] MEDS ORDERED: LIDOCAINE HCL 1%, 10 MG/ML (20ML VIAL) INF ONE (11:31)
[2023-04-29] MEDS ORDERED: LIDOCAINE 1%/EPI 1:100000 (20 ML MULTI DOSE VIAL) INF ONE (11:34)
[2023-04-29] MEDS ORDERED: ONDANSETRON 4 MG/2 ML VIAL ONE (11:35)
[2023-04-29] MEDS ORDERED: ONDANSETRON 4 MG/2 ML VIAL IVPUSH PRN (13:11)
[2023-04-29] MEDS ORDERED: LACTATED RINGERS SOLUTION 1,000 ML IV SCH (13:15)
[2023-04-29 15:02] VITALS: RESP 18
[2023-04-29 15:43] VITALS: BP 118/78; PULSE 66; TEMP 97
== END 2023-04-29 15:15 | disposition home or self-care (01) ==
LOC: JASU-SURG 04:31
PROVIDERS: ATTEND Student in an Organized Health Care Education/Training Program
PROC: 0QBP0ZZ Excision of Left Metatarsal, Open Approach (ICD-10-PCS; principal; 2023-04-29 10:30)
DX: M20.22 Hallux rigidus, left foot (principal); L97.529 Non-pressure chronic ulcer of other part of left foot with unspecified severity
CPT/HCPCS: 73630-TC-LT; 94760

== ENCOUNTER 2023-05-03 22:21 | Inpatient (IN) | payer OTHER ==
[2023-05-03 22:32] VITALS: BMI 30.4
[2023-05-04] MEDS ORDERED: BUPIVACAINE HCL/PF 0.5% (5MG/ML) 10 ML VIAL IJ ONE
[2023-05-04] MEDS ORDERED: ACETAMINOPHEN 1000 MG/100 ML BAG IVPB ONE ×2 (00:13→04:20)
[2023-05-04] MEDS ORDERED: ACETAMINOPHEN INJECTION 100 ML IVPB ONE ×2 (00:35→05:07)
[2023-05-04] MEDS ORDERED: VANCOMYCIN PREMIX 1.75 GM 1,750 MG/350 ML PIGGYBACK IVPB ONE (00:40)
[2023-05-04] MEDS ORDERED: CLINDAMYCIN 900 MG PREMIX IVPB 900 MG/50 ML BAG IVPB ONE (00:41)
[2023-05-04] MEDS ORDERED: PIPERACILLIN/TAZOB 4.5 GM 4.5 GM in DEXTROSE 5%-WATER 100 ML IVPB ONE (00:42)
[2023-05-04] MEDS ORDERED: PIPERACILLIN/TAZOB 4.5 GM 4.5 GM/100 ML BAG IVPB ONE (00:56)
[2023-05-04 01:01] LABS: BASO % 0.4 % (0-2.0); EOS % 0.3 % (0-4.5); HEMOGLOBIN 13.4 GM/dL (11.7-16.9); LYMPH % 13.5 % (8-40); MCH 30.4 pg (25.7-33.7); MCHC 34.3 g/dl (32.0-35.9); MEAN CELL VOLUME 88.6 fl (80-96); MEAN PLT VOLUME 7.9 fl (7.5-11.1); MONO % 7.9 % (3.8-10.2); NEUT % 77.9 % (42.8-82.8); PLATELET COUNT 259 10^3/uL (134-434); RDW 12.1 % (11.9-15.9); WHITE BLOOD COUNT 8.1 K/mm3 (4.0-10.0)
[2023-05-04 01:12] LABS: INR 1.19 (0.83-1.09); PROTHROMBIN TIME (PATIENT) 13.8 SEC (9.7-13.0)
[2023-05-04 01:14] LABS: ACTIVATED PTT 29.8 SECONDS (25.2-36.5)
[2023-05-04 01:22] LABS: POTASSIUM 3.6 mmol/L (3.5-5.1)
[2023-05-04 01:24] LABS: ALBUMIN 3.8 g/dl (3.4-5.0)
[2023-05-04 01:26] LABS: BLOOD UREA NITROGEN 12.4 mg/dL (7-18)
[2023-05-04 01:29] LABS: BILIRUBIN,TOTAL 1.4 mg/dL (0.2-1); TOT PROT 7.2 g/dl (6.4-8.2)
[2023-05-04 03:52] LABS: ERYTHROCYTE SEDIMENTATION RATE 59 mm/hr (0-20)
[2023-05-04] MEDS ORDERED: SODIUM CHLORIDE 1,000 ML IV SCH ×2 (05:45→13:54)
[2023-05-04] MEDS ORDERED: CLINDAMYCIN 300 MG PREMIX IVPB 300 MG/50 ML BAG IVPB SCH (08:00)
[2023-05-04 08:16] LABS: HEMATOCRIT 37.1 % (35.4-49); HEMOGLOBIN 12.7 GM/dL (11.7-16.9); MCH 30.3 pg (25.7-33.7); MCHC 34.4 g/dl (32.0-35.9); MEAN CELL VOLUME 88.1 fl (80-96); MEAN PLT VOLUME 7.9 fl (7.5-11.1); PLATELET COUNT 241 10^3/uL (134-434); RBC 4.21 M/mm3 (4.00-5.60); RDW 12.4 % (11.9-15.9); WHITE BLOOD COUNT 5.4 K/mm3 (4.0-10.0)
[2023-05-04 08:20] LABS: INR 1.26 (0.83-1.09); PROTHROMBIN TIME (PATIENT) 14.6 SEC (9.7-13.0)
[2023-05-04] MEDS ORDERED: CLINDAMYCIN 600MG PREMIX IVPB 600 MG/50 ML BAG IVPB ONE (08:36)
[2023-05-04 08:45] LABS: POTASSIUM 3.6 mmol/L (3.5-5.1)
[2023-05-04 08:52] LABS: ALBUMIN 3.2 g/dl (3.4-5.0); BLOOD UREA NITROGEN 15.1 mg/dL (7-18); MAGNESIUM 2.5 mg/dL (1.8-2.4)
[2023-05-04 08:55] LABS: PHOSPHOROUS 3.3 mg/dL (2.5-4.9)
[2023-05-04 08:56] LABS: BILIRUBIN,TOTAL 1.5 mg/dL (0.2-1); TOT PROT 6.6 g/dl (6.4-8.2)
[2023-05-04] MEDS ORDERED: amLODIPine BESYLATE 5 MG TABLET (FP) PO SCH (10:00)
[2023-05-04] MEDS ORDERED: PIPERACILLIN/TAZOB 3.375 GM 3.375 GM in DEXTROSE 5%-WATER - 50 ML IVPB SCH (10:00)
[2023-05-04] MEDS ORDERED: PIPERACILLIN/TAZOB 3.375 GM 3.375 GM/50 ML BAG IVPB ONE (10:48)
[2023-05-04] MEDS ORDERED: VANCOMYCIN 1,000 MG VIAL (RESTRICTED TO ID ONLY) ONE ×2 (11:19→12:44)
[2023-05-04] MEDS ORDERED: VANCOMYCIN/WATER 2 GRAMS 2,000 MG/400 ML PIGGYBACK IVPB SCH ×2 (12:00)
[2023-05-04] MEDS ORDERED: ONDANSETRON 4 MG/2 ML VIAL IVPUSH PRN ×2 (12:07→13:54)
[2023-05-04] MEDS ORDERED: oxyCODONE HCL 5 MG TABLET PO PRN (12:07)
[2023-05-04] MEDS ORDERED: PROPOFOL 20 ML ONE ×3 (12:13→13:03)
[2023-05-04] MEDS ORDERED: MIDAZOLAM HCL 2 MG/2 ML SINGLE DOSE VIAL ONE (12:15)
[2023-05-04] MEDS ORDERED: LACTATED RINGERS SOLUTION 1,000 ML IV SCH ×2 (12:15→13:54)
[2023-05-04] MEDS ORDERED: DEXAMETHASONE SOD PHOSPHATE 4 MG/1 ML VIAL ONE (12:38)
[2023-05-04] MEDS ORDERED: ONDANSETRON 4 MG/2 ML VIAL ONE (12:38)
[2023-05-04] MEDS ORDERED: LIDOCAINE HCL 1%, 10 MG/ML (20ML VIAL) NR ONE ×2 (12:45)
[2023-05-04] MEDS ORDERED: VANCOMYCIN 1,000 MG VIAL (RESTRICTED TO ID ONLY) IVPB ONE (13:18)
[2023-05-04] MEDS: CLINDAMYCIN 300 MG PREMIX IVPB 300 MG/50 ML BAG IVPB SCH ×2 (16:31→21:49)
[2023-05-04] MEDS: PIPERACILLIN/TAZOB 3.375 GM 3.375 GM in DEXTROSE 5%-WATER - 50 ML IVPB SCH (17:15)
[2023-05-04] MEDS: oxyCODONE HCL 5 MG TABLET PO PRN (18:22)
[2023-05-05] MEDS ORDERED: VANCOMYCIN/WATER 2 GRAMS 2,000 MG/400 ML PIGGYBACK IVPB SCH
[2023-05-05] MEDS: oxyCODONE HCL 5 MG TABLET PO PRN ×3 (00:26→21:25)
[2023-05-05] MEDS: PIPERACILLIN/TAZOB 3.375 GM 3.375 GM in DEXTROSE 5%-WATER - 50 ML IVPB SCH ×6 (01:48→23:09)
[2023-05-05] MEDS: CLINDAMYCIN 300 MG PREMIX IVPB 300 MG/50 ML BAG IVPB SCH ×3 (02:59→15:03)
[2023-05-05] MEDS: amLODIPine BESYLATE 5 MG TABLET (FP) PO SCH (09:53)
[2023-05-05] MEDS ORDERED: oxyCODONE HCL 5 MG TABLET PO PRN (12:35)
[2023-05-05] MEDS: CLINDAMYCIN 600MG PREMIX IVPB 600 MG/50 ML BAG IVPB SCH ×2 (15:24→17:30)
[2023-05-05] MEDS: VANCOMYCIN/WATER 1250 MG 1,250 MG/250 ML BAG IVPB SCH (15:44)
[2023-05-05] MEDS: VANCOMYCIN/WATER 2 GRAMS 2,000 MG/400 ML PIGGYBACK IVPB SCH ×2 (16:18→20:20)
[2023-05-05] MEDS: ENOXAPARIN NA (PORCINE) 40 MG/0.4 ML DISP.SYRIN SQ SCH (19:00)
[2023-05-06] MEDS: CLINDAMYCIN 600MG PREMIX IVPB 600 MG/50 ML BAG IVPB SCH ×3 (01:11→19:05)
[2023-05-06] MEDS: PIPERACILLIN/TAZOB 3.375 GM 3.375 GM in DEXTROSE 5%-WATER - 50 ML IVPB SCH ×3 (02:29→19:39)
[2023-05-06] MEDS: VANCOMYCIN/WATER 1250 MG 1,250 MG/250 ML BAG IVPB SCH ×2 (04:07→17:12)
[2023-05-06 08:53] LABS: BASO % 1.3 % (0-2.0); EOS % 2.2 % (0-4.5); HEMATOCRIT 34.5 % (35.4-49); HEMOGLOBIN 11.9 GM/dL (11.7-16.9); LYMPH % 28.2 % (8-40); MCH 30.9 pg (25.7-33.7); MCHC 34.6 g/dl (32.0-35.9); MEAN CELL VOLUME 89.4 fl (80-96); MEAN PLT VOLUME 7.8 fl (7.5-11.1); MONO % 11.6 % (3.8-10.2); NEUT % 56.7 % (42.8-82.8); PLATELET COUNT 251 10^3/uL (134-434); RBC 3.86 M/mm3 (4.00-5.60); WHITE BLOOD COUNT 5.3 K/mm3 (4.0-10.0)
[2023-05-06 09:16] LABS: POTASSIUM 3.9 mmol/L (3.5-5.1)
[2023-05-06 09:24] LABS: CALCIUM 8.6 mg/dL (8.5-10.1)
[2023-05-06 09:26] LABS: ALBUMIN 2.9 g/dl (3.4-5.0); BILIRUBIN,TOTAL 0.8 mg/dL (0.2-1)
[2023-05-06 09:27] LABS: BLOOD UREA NITROGEN 11.3 mg/dL (7-18)
[2023-05-06 09:29] LABS: MAGNESIUM 2.2 mg/dL (1.8-2.4)
[2023-05-06] MEDS: amLODIPine BESYLATE 5 MG TABLET (FP) PO SCH (09:42)
[2023-05-06] MEDS: ENOXAPARIN NA (PORCINE) 40 MG/0.4 ML DISP.SYRIN SQ SCH (09:42)
[2023-05-06] MEDS: oxyCODONE HCL 5 MG TABLET PO PRN ×2 (12:29→19:39)
[2023-05-07] MEDS: PIPERACILLIN/TAZOB 3.375 GM 3.375 GM in DEXTROSE 5%-WATER - 50 ML IVPB SCH ×2 (01:40→10:00)
[2023-05-07] MEDS: CLINDAMYCIN 600MG PREMIX IVPB 600 MG/50 ML BAG IVPB SCH ×2 (01:40→10:00)
[2023-05-07] MEDS: VANCOMYCIN/WATER 1250 MG 1,250 MG/250 ML BAG IVPB SCH (04:52)
[2023-05-07 08:35] LABS: BASO % 1.2 % (0-2.0); EOS % 2.7 % (0-4.5); HEMATOCRIT 35.9 % (35.4-49); HEMOGLOBIN 12.5 GM/dL (11.7-16.9); LYMPH % 27.2 % (8-40); MCH 30.9 pg (25.7-33.7); MCHC 34.9 g/dl (32.0-35.9); MEAN CELL VOLUME 88.5 fl (80-96); MEAN PLT VOLUME 7.5 fl (7.5-11.1); NEUT % 58.9 % (42.8-82.8); PLATELET COUNT 297 10^3/uL (134-434); RBC 4.05 M/mm3 (4.00-5.60); RDW 12.2 % (11.9-15.9); WHITE BLOOD COUNT 4.9 K/mm3 (4.0-10.0)
[2023-05-07 08:57] LABS: POTASSIUM 4.2 mmol/L (3.5-5.1)
[2023-05-07 09:09] LABS: TOT PROT 6.6 g/dl (6.4-8.2)
[2023-05-07 09:16] LABS: ALBUMIN 3.1 g/dl (3.4-5.0); MAGNESIUM 2.4 mg/dL (1.8-2.4)
[2023-05-07 09:19] LABS: BILIRUBIN,TOTAL 0.8 mg/dL (0.2-1)
[2023-05-07] MEDS: amLODIPine BESYLATE 5 MG TABLET (FP) PO SCH (10:00)
[2023-05-07] MEDS: ENOXAPARIN NA (PORCINE) 40 MG/0.4 ML DISP.SYRIN SQ SCH (10:00)
[2023-05-07] MEDS: oxyCODONE HCL 5 MG TABLET PO PRN ×2 (10:09→21:22)
[2023-05-07] MEDS: CEFTRIAXONE 2 GM in DEXTROSE 5%-WATER 100 ML IVPB SCH (16:02)
[2023-05-08 07:40] VITALS: RESP 20
[2023-05-08 08:15] LABS: BASO % 1.3 % (0-2.0); EOS % 2.7 % (0-4.5); HEMOGLOBIN 12.6 GM/dL (11.7-16.9); LYMPH % 28.6 % (8-40); MCH 30.8 pg (25.7-33.7); MCHC 35.1 g/dl (32.0-35.9); MEAN CELL VOLUME 87.8 fl (80-96); MEAN PLT VOLUME 7.6 fl (7.5-11.1); MONO % 10.3 % (3.8-10.2); NEUT % 57.1 % (42.8-82.8); PLATELET COUNT 276 10^3/uL (134-434); WHITE BLOOD COUNT 4.9 K/mm3 (4.0-10.0)
[2023-05-08 08:23] LABS: POTASSIUM 3.9 mmol/L (3.5-5.1)
[2023-05-08 08:27] LABS: CALCIUM 8.7 mg/dL (8.5-10.1); MAGNESIUM 2.4 mg/dL (1.8-2.4)
[2023-05-08 08:30] LABS: CREATININE 0.9 mg/dL (0.55-1.3)
[2023-05-08 08:32] LABS: BILIRUBIN,TOTAL 0.3 mg/dL (0.2-1); TOT PROT 6.4 g/dl (6.4-8.2)
[2023-05-08] MEDS: ENOXAPARIN NA (PORCINE) 40 MG/0.4 ML DISP.SYRIN SQ SCH (12:03)
[2023-05-08] MEDS: CEFTRIAXONE 2 GM in DEXTROSE 5%-WATER 100 ML IVPB SCH (12:03)
[2023-05-08] MEDS: amLODIPine BESYLATE 5 MG TABLET (FP) PO SCH (12:08)
[2023-05-08 12:49] LABS: INR 1.15 (0.83-1.09); PROTHROMBIN TIME (PATIENT) 13.3 SEC (9.7-13.0)
[2023-05-08 17:33] VITALS: BP 131/73; PULSE 82; TEMP 98.4
== END 2023-05-08 19:16 | disposition home or self-care (01) | DRG 857 ==
LOC: JER 22:21 → JERBED 05-04 03:02 → J8W 05-04 15:45
PROVIDERS: ADMIT Internal Medicine; ATTEND Nurse Practitioner Family
PROC: 0QBR0ZX Excision of Left Toe Phalanx, Open Approach, Diagnostic (ICD-10-PCS; 2023-05-04)
PROC: 3E0102A Introduction of Anti-Infective Envelope into Subcutaneous Tissue, Open Approach (ICD-10-PCS; 2023-05-04)
PROC: 0KBW0ZZ Excision of Left Foot Muscle, Open Approach (ICD-10-PCS; 2023-05-04 12:00)
PROC: 02HV33Z Insertion of Infusion Device into Superior Vena Cava, Percutaneous Approach (ICD-10-PCS; principal; 2023-05-08)
PROC: B518ZZA Fluoroscopy of Superior Vena Cava, Guidance (ICD-10-PCS; 2023-05-08)
DX: T81.41XA Infection following a procedure, superficial incisional surgical site, initial encounter (principal); L03.116 Cellulitis of left lower limb; L97.528 Non-pressure chronic ulcer of other part of left foot with other specified severity; M86.8X7 Other osteomyelitis, ankle and foot; B95.0 Streptococcus, group A, as the cause of diseases classified elsewhere; R73.03 Prediabetes; B95.62 Methicillin resistant Staphylococcus aureus infection as the cause of diseases classified elsewhere; I10 Essential (primary) hypertension; G62.9 Polyneuropathy, unspecified; Z89.422 Acquired absence of other left toe(s); Y83.8 Other surgical procedures as the cause of abnormal reaction of the patient, or of later complication, without mention of misadventure at the time of the procedure
CPT/HCPCS: 36415; 36569; 73630-TC-LT; 73700-TC-RT; 80053; 82962; 83036; 83605; 83735; 84100; 85025; 85027; 85610; 85651; 85730; 86140; 86850; 86900; 86901; 87040; 87070; 87075; 87077; 87186; 87205; 88304-TC; 88311-TC; 93005; 93010; 94760; 99285-25; J3370

== ENCOUNTER 2023-05-17 11:15 | Emergency (ER) | payer OTHER ==
[2023-05-17 11:32] VITALS: BMI 30.4
[2023-05-17] MEDS ORDERED: VANCOMYCIN 1,000 MG in DEXTROSE 5%-WATER - 250 ML IVPB ONE (12:29)
[2023-05-17 13:05] LABS: BASO % 0.8 % (0-2.0); EOS % 0.6 % (0-4.5); HEMATOCRIT 41.8 % (35.4-49); HEMOGLOBIN 14.8 GM/dL (11.7-16.9); LYMPH % 15.8 % (8-40); MCH 30.9 pg (25.7-33.7); MCHC 35.4 g/dl (32.0-35.9); MEAN CELL VOLUME 87.1 fl (80-96); MEAN PLT VOLUME 7.4 fl (7.5-11.1); MONO % 5.6 % (3.8-10.2); NEUT % 77.2 % (42.8-82.8); PLATELET COUNT 319 10^3/uL (134-434); RBC 4.79 M/mm3 (4.00-5.60); RDW 12.2 % (11.9-15.9); WHITE BLOOD COUNT 8.5 K/mm3 (4.0-10.0)
[2023-05-17] MEDS ORDERED: VANCOMYCIN 1 GRAM (PRE-DOCKED) 1,000 MG/250 ML BAG IVPB ONE (13:05)
[2023-05-17 13:23] LABS: CALCIUM 9.8 mg/dL (8.5-10.1)
[2023-05-17 13:24] LABS: BLOOD UREA NITROGEN 9.9 mg/dL (7-18)
[2023-05-17 13:27] LABS: CREATININE 0.9 mg/dL (0.55-1.3)
[2023-05-17 13:29] LABS: BILIRUBIN,TOTAL 0.5 mg/dL (0.2-1); TOT PROT 8.3 g/dl (6.4-8.2)
[2023-05-17 13:57] LABS: ALBUMIN 4.2 g/dl (3.4-5.0)
[2023-05-17 15:06] VITALS: BP 157/88; PULSE 90; RESP 20; TEMP 98.2
== END 2023-05-17 15:26 | disposition home or self-care (01) ==
LOC: JER 11:15
DX: L97.529 Non-pressure chronic ulcer of other part of left foot with unspecified severity (principal)
CPT/HCPCS: 36415; 80053; 85025; 87070; 87205; 99284-25

== ENCOUNTER 2023-09-10 14:11 | Inpatient (IN) | payer OTHER ==
[2023-09-10 15:54] LABS: BASO % 0.6 % (0-2.0); EOS % 0.6 % (0-4.5); HEMATOCRIT 42.7 % (35.4-49); HEMOGLOBIN 14.8 GM/dL (11.7-16.9); LYMPH % 14.6 % (8-40); MCHC 34.6 g/dl (32.0-35.9); MEAN CELL VOLUME 89.5 fl (80-96); MEAN PLT VOLUME 7.9 fl (7.5-11.1); MONO % 4.6 % (3.8-10.2); NEUT % 79.6 % (42.8-82.8); PLATELET COUNT 244 10^3/uL (134-434); RBC 4.77 M/mm3 (4.00-5.60); RDW 13.8 % (11.9-15.9); WHITE BLOOD COUNT 6.1 K/mm3 (4.0-10.0)
[2023-09-10 16:10] LABS: POTASSIUM 3.7 mmol/L (3.5-5.1)
[2023-09-10 16:12] LABS: CALCIUM 8.5 mg/dL (8.5-10.1)
[2023-09-10 16:13] LABS: ALBUMIN 3.4 g/dl (3.4-5.0); BLOOD UREA NITROGEN 12.6 mg/dL (7-18); MAGNESIUM 2.3 mg/dL (1.8-2.4)
[2023-09-10 16:18] LABS: BILIRUBIN,TOTAL 0.7 mg/dL (0.2-1); TOT PROT 6.6 g/dl (6.4-8.2)
[2023-09-10 16:26] LABS: INR 1.01 (0.83-1.09); PROTHROMBIN TIME (PATIENT) 11.4 SEC (9.7-13.0)
[2023-09-10 16:29] LABS: ACTIVATED PTT 29.6 SECONDS (25.2-36.5)
[2023-09-10 16:33] LABS: ERYTHROCYTE SEDIMENTATION RATE 23 mm/hr (0-20)
[2023-09-10 21:02] VITALS: BMI 30.6
[2023-09-10] MEDS ORDERED: ACETAMINOPHEN 325 MG TABLET (FP) PO PRN (23:25)
[2023-09-11 08:43] LABS: BASO % 0.6 % (0-2.0); EOS % 1.4 % (0-4.5); HEMATOCRIT 41.8 % (35.4-49); HEMOGLOBIN 14.4 GM/dL (11.7-16.9); LYMPH % 19.7 % (8-40); MCH 30.8 pg (25.7-33.7); MCHC 34.5 g/dl (32.0-35.9); MEAN CELL VOLUME 89.3 fl (80-96); MEAN PLT VOLUME 7.9 fl (7.5-11.1); MONO % 8.4 % (3.8-10.2); NEUT % 69.9 % (42.8-82.8); PLATELET COUNT 247 10^3/uL (134-434); RBC 4.68 M/mm3 (4.00-5.60); RDW 13.6 % (11.9-15.9); WHITE BLOOD COUNT 5.9 K/mm3 (4.0-10.0)
[2023-09-11 09:02] LABS: POTASSIUM 4.2 mmol/L (3.5-5.1)
[2023-09-11 09:06] LABS: ALBUMIN 3.2 g/dl (3.4-5.0); BLOOD UREA NITROGEN 9.4 mg/dL (7-18); CALCIUM 8.7 mg/dL (8.5-10.1)
[2023-09-11 09:09] LABS: CREATININE 0.9 mg/dL (0.55-1.3)
[2023-09-11 09:11] LABS: BILIRUBIN,TOTAL 1.4 mg/dL (0.2-1); TOT PROT 6.6 g/dl (6.4-8.2)
[2023-09-11] MEDS: amLODIPine BESYLATE 5 MG TABLET (FP) PO SCH (09:22)
[2023-09-11] MEDS: ERTAPENEM SODIUM 1 GM in SODIUM CHLORIDE 50 ML IVPB SCH (14:36)
[2023-09-11] MEDS: VANCOMYCIN/WATER 1250 MG 1,250 MG/250 ML BAG IVPB SCH (15:13)
[2023-09-12] MEDS: ENOXAPARIN NA (PORCINE) 40 MG/0.4 ML DISP.SYRIN SQ SCH (11:39)
[2023-09-13 08:19] LABS: BASO % 1.1 % (0-2.0); EOS % 2.1 % (0-4.5); HEMATOCRIT 47.8 % (35.4-49); HEMOGLOBIN 16.1 GM/dL (11.7-16.9); LYMPH % 24.3 % (8-40); MCH 30.5 pg (25.7-33.7); MCHC 33.7 g/dl (32.0-35.9); MEAN CELL VOLUME 90.5 fl (80-96); MEAN PLT VOLUME 8.1 fl (7.5-11.1); MONO % 6.9 % (3.8-10.2); NEUT % 65.6 % (42.8-82.8); PLATELET COUNT 289 10^3/uL (134-434); RBC 5.29 M/mm3 (4.00-5.60); RDW 13.1 % (11.9-15.9); WHITE BLOOD COUNT 5.8 K/mm3 (4.0-10.0)
[2023-09-13 08:19] LABS: BLOOD UREA NITROGEN 11.3 mg/dL (7-18)
[2023-09-13 08:22] LABS: CREATININE 0.9 mg/dL (0.55-1.3)
[2023-09-13] MEDS ORDERED: VANCOMYCIN PREMIX 1.5 GM 1,500 MG/300 ML BAG IVPB SCH (19:00)
[2023-09-13] MEDS: VANCOMYCIN PREMIX 1.5 GM 1,500 MG/300 ML BAG IVPB SCH (21:00)
[2023-09-14] MEDS: VANCOMYCIN HCL 1,500 MG in DEXTROSE 5%-WATER - 250 ML IVPB SCH (16:37)
[2023-09-15 08:32] LABS: INR 1.1 (0.83-1.09); PROTHROMBIN TIME (PATIENT) 12.4 SEC (9.7-13.0)
[2023-09-15] MEDS ORDERED: LIDOCAINE HCL/PF 2% SDV 5ML VIAL ONE (14:26)
[2023-09-15] MEDS ORDERED: FENTANYL CITRATE/PF 50 MCG/ML VIAL ONE (14:27)
[2023-09-15] MEDS ORDERED: PROPOFOL 20 ML ONE (14:27)
[2023-09-15] MEDS ORDERED: MIDAZOLAM HCL 2 MG/2 ML SINGLE DOSE VIAL ONE ×2 (14:27→15:20)
[2023-09-15] MEDS ORDERED: GENTAMICIN SO4 80 MG/2 ML VIAL ONE (14:37)
[2023-09-15] MEDS ORDERED: LIDOCAINE HCL 2% (20ML MULTI-DOSE VIAL) ONE (14:38)
[2023-09-15] MEDS: VANCOMYCIN HCL 1,500 MG in DEXTROSE 5%-WATER - 250 ML IVPB SCH (14:49)
[2023-09-15] MEDS: LIDOCAINE HCL 2% (50ML VIAL) NR ONE (15:43)
[2023-09-15] MEDS ORDERED: PROPOFOL 40 ML ONE (15:48)
[2023-09-15] MEDS ORDERED: KETOROLAC TROMETHAMINE 30 MG/1 ML VIAL ONE (16:01)
[2023-09-15] MEDS ORDERED: ONDANSETRON 4 MG/2 ML VIAL ONE (16:01)
[2023-09-15] MEDS ORDERED: ONDANSETRON 4 MG/2 ML VIAL IVPUSH PRN ×2 (16:15→16:29)
[2023-09-15] MEDS ORDERED: PROMETHAZINE HCL 25 MG/1 ML VIAL IVPB PRN ×2 (16:15→16:29)
[2023-09-15] MEDS ORDERED: LACTATED RINGERS SOLUTION 1,000 ML IV SCH (16:15)
[2023-09-15] MEDS ORDERED: ACETAMINOPHEN 1000 MG/100 ML BAG IVPB ONE (16:16)
[2023-09-15] MEDS ORDERED: ACETAMINOPHEN INJECTION 100 ML IVPB ONE (16:19)
[2023-09-15] MEDS: ACETAMINOPHEN 1000 MG/100 ML BAG IVPB ONE ×2 (16:23→17:24)
[2023-09-15] MEDS: LACTATED RINGERS SOLUTION 1,000 ML IV SCH (16:25)
[2023-09-15] MEDS ORDERED: ACETAMINOPHEN 325 MG TABLET (FP) PO PRN (16:29)
[2023-09-15 16:42] VITALS: RESP 18
[2023-09-16] MEDS ORDERED: ENOXAPARIN NA (PORCINE) 40 MG/0.4 ML DISP.SYRIN SQ SCH (10:00)
[2023-09-16 10:06] LABS: HEMATOCRIT 40.6 % (35.4-49); HEMOGLOBIN 13.9 GM/dL (11.7-16.9); MCH 30.3 pg (25.7-33.7); MCHC 34.3 g/dl (32.0-35.9); MEAN CELL VOLUME 88.3 fl (80-96); MEAN PLT VOLUME 8.1 fl (7.5-11.1); PLATELET COUNT 247 10^3/uL (134-434); RDW 12.8 % (11.9-15.9); WHITE BLOOD COUNT 5.9 K/mm3 (4.0-10.0)
[2023-09-16 10:08] LABS: POTASSIUM 3.7 mmol/L (3.5-5.1)
[2023-09-16 10:16] LABS: ALBUMIN 3.4 g/dl (3.4-5.0)
[2023-09-16 10:17] LABS: BLOOD UREA NITROGEN 11.1 mg/dL (7-18); CALCIUM 8.7 mg/dL (8.5-10.1); MAGNESIUM 2.4 mg/dL (1.8-2.4)
[2023-09-16 10:20] LABS: CREATININE 0.9 mg/dL (0.55-1.3); PHOSPHOROUS 3.1 mg/dL (2.5-4.9)
[2023-09-16] MEDS: amLODIPine BESYLATE 5 MG TABLET (FP) PO SCH (10:21)
[2023-09-16] MEDS: ERTAPENEM SODIUM 1 GM in SODIUM CHLORIDE 50 ML IVPB SCH (10:21)
[2023-09-16 10:22] LABS: TOT PROT 6.5 g/dl (6.4-8.2)
[2023-09-16 15:27] VITALS: BP 145/82; PULSE 81; TEMP 98.5
== END 2023-09-16 18:21 | disposition home or self-care (01) | DRG 475 ==
LOC: JER 14:11 → JERBED 18:18 → J6S 20:51
PROVIDERS: ADMIT Internal Medicine; ATTEND Internal Medicine
PROC: 0Y6N0ZD Detachment at Left Foot, Partial 4th Ray, Open Approach (ICD-10-PCS; principal; 2023-09-15 15:00)
DX: M86.172 Other acute osteomyelitis, left ankle and foot (principal); L03.115 Cellulitis of right lower limb; L03.116 Cellulitis of left lower limb; G60.8 Other hereditary and idiopathic neuropathies; I10 Essential (primary) hypertension; L97.529 Non-pressure chronic ulcer of other part of left foot with unspecified severity; A49.01 Methicillin susceptible Staphylococcus aureus infection, unspecified site; M86.672 Other chronic osteomyelitis, left ankle and foot
CPT/HCPCS: 36415; 73630-TC-LT; 73720-LT; 80048; 80053; 83036; 83735; 84100; 85025; 85027; 85610; 85651; 85730; 86140; 86850; 86900; 86901; 87040; 87070; 87075; 87186; 87205; 88305-TC; 88311-TC; 93926-TC; 94760; 99285-25; G0463-25; G0480; J0131

== ENCOUNTER 2023-10-13 08:05 | Day surgery (SDC) | payer OTHER ==
[2023-10-13] MEDS: DALBAVANCIN HCL 1,500 MG in DEXTROSE 5%-WATER - 500 ML IVPB ONE (08:43)
[2023-10-13 10:19] LABS: HEMATOCRIT 41.5 % (35.4-49); HEMOGLOBIN 14.1 G/dL (11.7-16.9); MCH 30.7 pg (25.7-33.7); MEAN CELL VOLUME 90.3 fl (80-96); MEAN PLT VOLUME 8.8 fl (7.5-11.1); PLATELET COUNT 173.4 10^3/uL (134-434); RDW 13.6 % (11.9-15.9); WHITE BLOOD COUNT 4.1 10^3/uL (4.0-10.8)
[2023-10-13 10:21] VITALS: BP 138/70; PULSE 86; RESP 18; TEMP 98.6
[2023-10-13 11:08] LABS: ERYTHROCYTE SEDIMENTATION RATE 4 mm/hr (0-20)
== END 2023-10-13 11:10 | disposition home or self-care (01) ==
LOC: FINFUSION 08:05 → FM/S 08:07 → FINFUSION 11:10
PROVIDERS: ATTEND Internal Medicine
DX: M86.8X7 Other osteomyelitis, ankle and foot (principal)
CPT/HCPCS: 36415; 85027; 85651; 96365; J0875